=== PATIENT | male | born 1965 | race Caucasian/White ===

== ENCOUNTER 2017-11-28 12:15 | Emergency (ER) | payer MEDICARE, SELFPAY ==
[2017-11-28 12:16] VITALS: BP 132/84; PULSE 100; RESP 16; TEMP 36.7; O2SAT 98; BMI 41.9
--- NOTE | 2017-11-28 12:41 | ED.VISSUMM ---
- ER Visit Summary Date of Service: 11/28/17 Chief Complaint: Back pain History of Present Illness: The patient is a 52 M who presents with back pain that began 2 days ago after lifting his grandson. Patient states his grandson only weighs approximately 19 pounds. Patient states the pain is on the left lower lumbar area. Patient states he has a history of prior disc disease and prior discectomy. Patient states that usually his pain is on the right and he is concerned because the pain is on the left. Patient states that he stands up he gets numbness and tingling in his legs. Patient denies any radiation of the pain to his legs. Patient denies any bowel or bladder changes. Patient denies any saddle anesthesia. Physical Examination: Vital signs are stable. Patient is afebrile. Patient is in no acute distress. Musculoskeletal exam revealed tenderness and spasm of the lumbar paraspinal muscles on the left. There is no midline tenderness. There is no bony crepitance or step-off. Range of motion was limited in all motions of the lumbar spine secondary to pain. Strength is 5/5 bilaterally upper and lower extremities. There are no sensory deficits noted. Deep tendon reflexes are 2/4 bilaterally in the upper and lower extremities. The remaining physical exam is within normal limits. Test Results: X-rays of the lumbar spine were obtained. There were degenerative changes noted but no acute fracture. Emergency Department Course and Treatment: Patient was given injection of Toradol here. Patient was given prescriptions for Naprosyn and Flexeril. Patient was instructed use ice to the area. Patient was instructed to follow-up with his primary care physician in 5-7 days. Patient understood and was agreeable with the plan. All questions were answered. Disposition: Discharged home Impression: Acute lumbar strain This note was generated with [employer] dictation software. It may contain incorrect words, spelling, and punctuation that were not noted in review of the chart prior to signing ED Disposition - Plan for ED Patient: Disposition: Home or Assisted Living Chief Complaint: Back Diagnosis: Acute lumbar myofascial strain Instructions: ED Sprain Strain Lumbar Prescriptions: Naproxen [Naprosyn] 500 mg PO BID PRN #20 tab Cyclobenzaprine [Flexeril] 10 mg PO TID PRN #20 tab PRN Reason: Muscle Spasm Referrals: Lalo Weiner DO [Primary Care Provider] -
[2017-11-28] MEDS: Ketorolac 60 MG/2 ML Vial IM (12:58)
--- NOTE | 2017-11-28 13:25 | RAD_ITS ---
STUDY: X-RAY - LUMBAR SPINE REASON FOR EXAM: Male, 52 years old. Chronic lower back pain. TECHNIQUE: 3 view(s) of the lumbar spine were obtained. COMPARISON: None FINDINGS: Normal lumbar lordosis. There is no substantial scoliosis. There is a normal alignment of the vertebrae. Spondylosis at the L4-L5 and L5-S1 levels. Moderate degree of disc space narrowing at the L4-L5 level and moderate degree of disc space narrowing and degeneration at the L5-S1 level. Prior laminectomy at the L5-S1 level. The soft tissue structures are unremarkable. RAD/Lumbar Spine 2 or 3 Views IMPRESSION: Degenerative changes of the spine, as detailed above. Electronically Signed: Jorje Monroy MD at 14:05 EDT Tel [phone], Service support ,
[2017-11-28 15:08] VITALS: BP 148/94; PULSE 73; RESP 17
== END 2017-11-28 15:09 | disposition home or self-care (01) ==
PROVIDERS: Emergency Provider Emergency Medicine; Family Provider Student in an Organized Health Care Education/Training Program; PCP Student in an Organized Health Care Education/Training Program
DX: S39.012A Strain of muscle, fascia and tendon of lower back, initial encounter (principal); X50.9XXA Other and unspecified overexertion or strenuous movements or postures, initial encounter; Y93.9 Activity, unspecified; Y92.89 Other specified places as the place of occurrence of the external cause; Y99.9 Unspecified external cause status; E11.9 Type 2 diabetes mellitus without complications; F17.210 Nicotine dependence, cigarettes, uncomplicated
CPT/HCPCS: 72100; 96372; 99282

== ENCOUNTER 2018-04-26 10:46 | Emergency (ER) | payer MEDICARE, SELFPAY ==
[2018-04-26 10:47] VITALS: BP 134/77; PULSE 99; RESP 17; TEMP 36.6; O2SAT 95; BMI 44.8
--- NOTE | 2018-04-26 11:03 | ED.VISSUMM ---
- ER Visit Summary Date of Service: 04/26/18 Chief Complaint: Bilateral low back pain radiating anteriorly History of Present Illness: The patient is a 52 M who presents with bilateral low back pain that radiated anteriorly today. Pain started 4 days ago. Pain started after he moved furniture. He denies bowel bladder dysfunction. No saddle paresthesia anesthesia. He denies radicular pain. He denies foot drop. He denies quadricep weakness going up and down steps. He denies fever, chills or night sweats. Denies weight gain or weight loss. He denies dysuria, frequency, urgency or hematuria. He denies history of renal ureterolithiasis. There is no history of direct trauma. He denies cardiac respiratory symptoms. Past medical history of hypertension, diabetes and hypercholesterolemia. He was unaware that his creatinine is elevated 1.58. Physical Examination: Vital signs noted and blood pressure is slightly elevated 134/77. BMI is greater than 40 HEENT exam is unremarkable. Heart is regular without murmur, gallop or rub. S1 and S2 are normal. Lungs are clear to auscultation with good movement of air bilaterally. Abdomen is prominent with no tenderness. There is no abdominal bruit noted. Unable to assess for palpable pulsatile mass. There is no CVA tenderness. He has pain palpation right and left lower back. Straight leg test is negative. Patella and ankle reflex are 1+. EHL is intact. He has diminished to absent PT pulse bilaterally. Capillary refill is normal. Normal sensation. Test Results: None are indicated Emergency Department Course and Treatment: Patient was informed application of heat after injury makes pain worse. He took Percocet at home that he had from a another issue with some improvement. Since patient drove himself to the emergency department he was given a prescription for opiate analgesia. He was not given NSAIDs because of the elevated creatinine and fact that he has diabetes hypertension. Treatment Plan: Rest, ice opiate analgesia times 3 days Disposition: Discharged to home Impression: Bilateral low back pain without sciatica Renal insufficiency Diabetes by history History of hypertension History of hypercholesterolemia This note was generated with [employer] software. It may contain incorrect words, spelling, and punctuation that were not noted in review of the chart prior to signing ED Disposition - Plan for ED Patient: Disposition: Home or Assisted Living Chief Complaint: Flank Pain Instructions: ED Low Back Pain Injury Prescriptions: Oxycodone HCl/Acetaminophen [Percocet 5/325] 1 tab PO Q6H PRN PRN 3 Days #12 tab PRN Reason: Pain Referrals: Lalo Weiner DO [Primary Care Provider] - 1 Week if not improving
== END 2018-04-26 11:20 | disposition home or self-care (01) ==
LOC: ED 11:14
PROVIDERS: Emergency Provider Emergency Medicine; Family Provider Student in an Organized Health Care Education/Training Program; PCP Student in an Organized Health Care Education/Training Program
DX: M54.5 Low back pain (principal); R10.9 Unspecified abdominal pain; E11.9 Type 2 diabetes mellitus without complications; E78.00 Pure hypercholesterolemia, unspecified; Z72.0 Tobacco use; I12.0 Hypertensive chronic kidney disease with stage 5 chronic kidney disease or end stage renal disease; N18.6 End stage renal disease
CPT/HCPCS: 99282

== ENCOUNTER 2019-03-21 14:42 | Emergency (ER) | payer MEDICARE, SELFPAY ==
[2019-03-21 14:43] VITALS: BP 127/87; PULSE 118; RESP 20; TEMP 36.3; O2SAT 97; BMI 42.6
--- NOTE | 2019-03-21 14:53 | ED.RN ---
DR. LERMA MADE AWARE OF PT'S DIZZINESS FOR 2-4 DAYS AND VISION LOSS THAT STARTED AT 1000 TODAY. THIS RN ASKED IF STROKE ALERT SHOULD BE INITIATED AND DR. LERMA STATES I NEED TO SEE THE PT FIRST.
[2019-03-21 15:05] VITALS: BP 128/80; PULSE 103; RESP 15; O2SAT 98
[2019-03-21 15:06] LABS: Bedside Glucose 142 mg/dL (70-110)
--- NOTE | 2019-03-21 15:10 | CT_ITS ---
STUDY: CT BRAIN WITHOUT CONTRAST REASON FOR EXAM: Male, 53 years old. Vision changes involving the left eye today RADIATION DOSAGE (If Supplied By Facility): CTDIvol = ( 44.99 ) mGy, DLP = ( 829.85 ) mGycm TECHNIQUE: Transaxial CT imaging of the brain was performed without administration of intravenous contrast material. Individualized dose optimization techniques were used for this CT. COMPARISON: No relevant priors. FINDINGS: Normal soft tissue structures. Normal calvarium. Normal size ventricles and extra-axial spaces for the patient's age. Normal white matter tracts of the cerebral hemispheres. Normal basal ganglia and thalami. Normal brainstem. Normal cerebellum. There is no intracranial hemorrhage. There are no findings of an acute ischemic infarction. There is mucoperiosteal inflammatory disease of the maxillary sinuses consistent with mild chronic sinusitis. CT/Brain/Head without Contrast IMPRESSION: Normal unenhanced CT scan of the brain. Chronic maxillary sinusitis. Electronically Signed: Bob Green MD (Brooks) at 15:40 EST , Service support ,
--- NOTE | 2019-03-21 15:10 | EKG12_ITS ---
Test Reason : DIZZINESS Blood Pressure : / mmHG Vent. Rate : 105 BPM Atrial Rate : 105 BPM P-R Int : 150 ms QRS Dur : 078 ms QT Int : 338 ms P-R-T Axes : 039 078 028 degrees QTc Int : 446 ms Sinus tachycardia Low Voltage QRS (Limb Leads) Poor R-Wave Progression Confirmed by LEROY GASPAR, MAXIM ([id number]), editorial project manager WARD PILLAI ([id number]) on 03/24/2019 10:56:15 AM Referred By: POOJA Confirmed By:MAXIM HARPER MD
[2019-03-21 15:24] LABS: Absolute Lymphocyte Count 3.74 X10^3/uL (0.83-4.51); Basophil# 0.09 X10^3/uL; Basophil% 0.6 % (0-1); Eosinophil# 0.35 X10^3/uL; Eosinophils% 2.4 % (0-5); Hematocrit 47.1 % (40-54); Hemoglobin 15.7 g/dL (13.0-16.5); Lymphocyte # 3.74 X10^3/ul (4.0); Lymphocyte % 26.1 % (19-41); Mean Corp Hgb Conc 33.3 g/dL (32-36); Mean Corpuscular Hgb 28.8 pg (27.0-32.0); Mean Corpuscular Volume 86.4 fL (80-94); Mean Platelet Vol. 9.8 fl (6.2-12.0); Monocyte# 1.05 X10^3/uL; Monocyte% 7.3 % (0-10); NRBC Flagged by Analyzer 0 % (0-5); Platelet Count 347 K/mm3 (150-450); RBC Distribution Width CV 13.3 % (11.6-14.6); RBC Distribution Width SD 41.6 fl (35.1-43.9); Red Blood Count 5.45 M/mm3 (4.6-6.2); White Blood Count 14.3 K/mm3 (4.4-11.0)
--- NOTE | 2019-03-21 15:29 | ED.VIS.GEN ---
History of Present Illness Chief Complaint: Dizziness Detail of Chief Complaint: Dizziness, headache, vision loss left eye Informant: Patient Onset: Days Narrative: Patient presents with mild headache and a lightheaded sensation for the past 1 week. He states overall he feels very weak but does not have any focal deficits. He reportedly woke up this morning with normal vision. At 10 AM he noted a black field covering the medial third of his left eye. He had no eye pain. At 130 this afternoon he noted that the dark coverage now covered three quarters of his vision. He is only able to see out of the upper outer quarter of his eye or so. Past Medical History - Allergies and Home Meds Allergies/Adverse Reactions: Allergies hydrocodone bitartrate [From Vicodin] Adverse Reaction (Verified 03/21/19 14:47) Nausea Primary Care Physician: Lalo Weiner DO [Primary Care Provider] - Prior records reviewed: Yes Past Medical History: - - Reviewed Surgical History: - - right calcaneal fracture repair, discectomy lumbar. Smoking Status: Current every day smoker - Family History Maternal Family History: Reports: Hypertension, Stroke Paternal Family History: Reports: Heart Disease, Hypertension Review of Systems General: Denies: Chills, Fever Eyes: Reports: Visual changes - left ENT: Denies: Bilateral ear pain Cardiovascular: Denies: Chest pain, Palpitations Respiratory: Reports: Dyspnea - With exertion. Denies: Cough, Sputum Gastrointestinal: Denies: Abdominal pain, Nausea, Vomiting, Diarrhea Genitourinary: Denies: Dysuria Musculoskeletal: Denies: Swelling, Extremity Pain Skin: Denies: Rash, Wounds Neurological: Reports: Headache, Weakness - Generalized weakness Hematologic: Denies: Easy bruising Allergy: Denies: Uticaria Physical Exam Vital Signs/Narrative: Vital Signs Temp Pulse Resp BP Pulse Ox 03/21/19 15:05 103 H 15 128/80 H 98 03/21/19 14:43 97.4 F L 118 H 20 H 127/87 H 97 Inital Vital Signs reviewed: Yes General: Well nourished, Well developed Head: Normocephalic Eyes: - - Right pupil 3 mm to 1 mm. Left pupil 3mm to 2 mm. Red reflex is noted on the back of the left eye but I am unable to make out any further detail. Extraocular movements are fully intact. There is no conjunctival injection. ENT: Moist mucous membranes Neck: Supple Cardiovascular: Tachycardia - Mild tachycardia. Respiratory: No distress, CTA bilaterally Abdomen: Soft, Nontender, Normal bowel sounds Extremities: Nontender Skin: Normal color, No rash Neurological: Alert, Oriented x3, Normal Strength, Normal Sensation Psychological: Normal affect Diagnostic/Tx/Re-eval Impressions Brain CT 03/21/19 15:10 IMPRESSION: Normal unenhanced CT scan of the brain. Chronic maxillary sinusitis. Electronically Signed: Bob Green MD (Brooks) at 15:40 EST , Service support , Chest X-Ray 03/21/19 15:30 IMPRESSION: Stable, nonacute portable x-ray examination of the chest. Electronically Signed: Bob Green MD (Brooks) at 15:58 EST , Service support , 03/21/19 15:10 Brain/Head without Contrast [CT] Stat 03/21/19 15:30 Chest 1 View (Portable) [RAD] Stat Laboratory Results 03/21/19 03/21/19 03/21/19 14:50 14:50 14:50 WBC 14.3 H RBC 5.45 Hgb 15.7 Hct 47.1 MCV 86.4 MCH 28.8 MCHC 33.3 RDW Std Deviation 41.6 RDW Coeff of Ivory 13.3 Plt Count 347 MPV 9.8 Immature Gran % (Auto) 0.600 Neut % (Auto) 63.0 Lymph % (Auto) 26.1 [place] % (Auto) 7.3 Eos % (Auto) 2.4 Baso % (Auto) 0.6 Absolute Neuts (auto) 9.0 H Absolute Lymphs (auto) 3.74 Nucleated RBC % 0 PT 14.3 INR 1.1 APTT 39.4 H Sodium 136 Potassium 4.2 Chloride 104 Carbon Dioxide 23.0 Anion Gap 9 BUN 25 H Creatinine 1.21 Estim Creat Clear Calc 77.96 Est GFR (MDRD) Af Amer 80 Est GFR (MDRD) Non-Af 66 BUN/Creatinine Ratio 20.7 H Glucose 137 H Calcium 9.3 Total Bilirubin 0.60 Direct Bilirubin 0.17 AST 24 ALT 57 Alkaline Phosphatase 118 H Troponin I < 0.015 Total Protein 7.9 Albumin 3.4 Globulin 4.5 H POC Glucose 03/21/19 15:00 WBC RBC Hgb Hct MCV MCH MCHC RDW Std Deviation RDW Coeff of Ivory Plt Count MPV Immature Gran % (Auto) Neut % (Auto) Lymph % (Auto) [place] % (Auto) Eos % (Auto) Baso % (Auto) Absolute Neuts (auto) Absolute Lymphs (auto) Nucleated RBC % PT INR APTT Sodium Potassium Chloride Carbon Dioxide Anion Gap BUN Creatinine Estim Creat Clear Calc Est GFR (MDRD) Af Amer Est GFR (MDRD) Non-Af BUN/Creatinine Ratio Glucose Calcium Total Bilirubin Direct Bilirubin AST ALT Alkaline Phosphatase Troponin I Total Protein Albumin Globulin POC Glucose 142 H - EKG Initial EKG Interpretation: Sinus Tachycardia - Sinus tach at 105. No acute ischemia. - Medical Decision Making I spoke with Dr. Roper immediately after I saw the patient. He states it sounds like the patient may have a vitreous hemorrhage and that he had gradual change in his vision. I went back and explained this to the patient. He wanted me to be sure that I understood that at 10 AM he had sudden loss of vision from the medial third of his eye which remained stable, then suddenly worsened at 1:30. He tells me that he has been treated for glaucoma and has been told in the past that he had a retinal tear and should watch for retinal detachment. Following completion of lab work and CT, I spoke with Dr. Roper again. I relayed this information. He advises that typically retinal detachment will have vision loss over period of 3 to 5 days. If the patient's vision was normal this morning and now is very poor it is unlikely to be a retinal detachment. He thinks the patient may have developed another retinal tear and potentially some hemorrhage from that. This was explained to the patient in detail. Patient voices understanding and agreement. We advised the patient that we would like him to be seen by ophthalmology tomorrow. 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 Roper states that he is happy to see the patient tomorrow if he is unable to see his physician. On repeat evaluation heart rate is in the 90s. Patient is resting comfortably. ED Disposition - Plan for ED Patient: Disposition: Home or Assisted Living Diagnosis: Change in vision Instructions: Blurred Vision Referrals: Eliazar Roper MD [STAFF PHYSICIAN] - 1 Day Additional Instructions: As discussed, you need to be seen by ophthalmology tomorrow. If you are unable to see your doctor, call Dr Roper' office to be seen tomorrow.
--- NOTE | 2019-03-21 15:30 | RAD_ITS ---
STUDY: X-RAY CHEST REASON FOR EXAM: Male, 53 years old. Shortness of breath TECHNIQUE: AP COMPARISON: 10/19/2016 FINDINGS: EKG leads project over the chest. The lungs are clear and expanded. There is no demonstrated pleural abnormality. Normal size heart. Normal mediastinum and jojo. Normal visualized pulmonary arteries. Normal visualized aortic arch and descending thoracic aorta. Normal visualized thoracic spine. Normal visualized ribs, clavicles, and shoulders. There is no demonstrated abnormality of the visualized soft tissue structures of the upper abdomen. RAD/Chest 1 View (Portable) IMPRESSION: Stable, nonacute portable x-ray examination of the chest. Electronically Signed: Bob Green MD (Brooks) at 15:58 EST , Service support ,
[2019-03-21 15:35] LABS: International Normalized Ratio 1.1; Prothrombin Time (Protime)PT. 14.3 SECONDS (11.7-14.9)
[2019-03-21 15:36] LABS: Partial Thromboplast Time 39.4 Seconds (24.1-36.2)
[2019-03-21 15:39] LABS: AST(SGOT) 24 U/L (15-37); Alanine Aminotransfer ALT/SGPT 57 U/L (16-61); Albumin, Serum 3.4 g/dL (3.2-5.0); Alkaline Phosphatase 118 U/L (45-117); Anion Gap 9 (5-15); BUN 25 mg/dL (7-18); BUN/Creat Ratio 20.7 RATIO (10-20); Bilirubin, Direct 0.17 mg/dL (0.00-0.30); Calcium,Total 9.3 mg/dL (8.5-10.1); Chloride 104 mmol/L (98-107); Creatinine, Serum 1.21 mg/dL (0.70-1.30); EST Glomerular Filtration Rate 66 mL/min (>60); Est Glom Filt Rate - Afr Amer 80 mL/min (>60); Estimated Creatinine Clearance 77.96 ml/min; Globulin 4.5 g/dL (2.2-4.2); Glucose 137 mg/dL (74-106); Potassium 4.2 mmol/L (3.5-5.1); Protein, Total 7.9 g/dL (6.4-8.2); Sodium Level 136 mmol/L (136-145)
[2019-03-21] MEDS: 0.9% Normal Saline 1,000 ML 150 ML IV (15:44)
[2019-03-21 16:12] VITALS: BP 129/81; PULSE 85; RESP 19; O2SAT 95
--- NOTE | 2019-03-21 16:14 | ED.RN ---
REVIEWED D/C INSTRUCTIONS, FOLLOW UP CARE, AND S/S THAT WOULD WARRANT A RETURN TO THE ED WITH PT. PT VERBALIZED AN UNDERSTANDING AND DENIES FURTHER QUESTIONS FOR THIS RN. PT SKIN P/W/D, RESP EVEN AND UNLABORED, PT A&O X 3, NO DISTRESS NOTED. PT AMBULATED OUT OF ED, GAIT STEADY.
== END 2019-03-21 16:15 | disposition home or self-care (01) ==
PROVIDERS: Emergency Provider Emergency Medicine; Family Provider Student in an Organized Health Care Education/Training Program; PCP Student in an Organized Health Care Education/Training Program
DX: H53.8 Other visual disturbances (principal); J32.0 Chronic maxillary sinusitis; F17.200 Nicotine dependence, unspecified, uncomplicated; Z82.49 Family history of ischemic heart disease and other diseases of the circulatory system; Z88.5 Allergy status to narcotic agent; R06.02 Shortness of breath
CPT/HCPCS: 70450; 71045; 80048; 80076; 82962; 84484; 85025; 85610; 85730; 93005; 96360; 99284; J7030; A4216

== ENCOUNTER 2019-05-29 14:00 | Emergency (ER) | payer MEDICARE, SELFPAY ==
[2019-05-29 14:00] VITALS: BP 154/106; PULSE 114; RESP 18; TEMP 36.9; O2SAT 99; BMI 44.5
--- NOTE | 2019-05-29 14:13 | CT_ITS ---
STUDY: CT ABDOMEN AND PELVIS WITHOUT CONTRAST REASON FOR EXAM: Male, 53 years old. RLQ PAIN, HX HERNIA REPAIR RADIATION DOSAGE (If Supplied By Facility): CTDIvol = ( 23.71 ) mGy, DLP = ( 1327.21 ) mGycm TECHNIQUE: Transaxial images were obtained from the dome of the diaphragm to the symphysis pubis without oral contrast, and without intravenous contrast. Sagittal and coronal images were reconstructed. Individualized dose optimization techniques were used for this CT. COMPARISON: CT abdomen and pelvis with oral and IV contrast May 02, 2017 FINDINGS: The visualized lung bases are unremarkable. The visualized portions of the heart are within normal limits. Normal liver. The portal vein diameter is 20.5 mm. Normal gallbladder and extrahepatic biliary system. Normal spleen. Normal pancreas. Normal bilateral adrenal glands. Normal right kidney. Normal left kidney. No hydronephrosis. Normal visualized stomach. Normal small intestine. Normal colon. The appendix is visualized and appears normal. There is mild to moderate atherosclerotic calcification of the distal abdominal aorta and proximal iliac arteries, without a demonstrated aneurysm. Normal inferior vena cava. There is a stable crescent shaped 2.1 x 3.75 x 1.45 cm lymph node interposed between the inferior vena cava and neck of the pancreas. A few upper normal-sized to borderline enlarged left periaortic ridge. No lymph nodes are unchanged. No new adenopathy. Normal urinary bladder. Normal visualized prostate gland. Normal abdominal wall. There are stable multilevel degenerative changes of the visualized thoracolumbar spine. CT/Abdomen/Pelvis without Cont IMPRESSION: 1. No recurrent abdominal wall hernia. 2. No new demonstrated abdominal/pelvic mass or fluid collection. 3. Mild to moderate aortoiliac atherosclerotic calcification plaque in again noted. No demonstrated aneurysm. Electronically Signed: Nestor Moreno MD at 15:21 EST , Service support ,
--- NOTE | 2019-05-29 14:15 | ED.VISSUMM ---
- ER Visit Summary Date of Service: 05/29/19 Chief Complaint: Abdominal pain History of Present Illness: The patient is a 53 M who presents with abdominal pain. Started this morning when he woke up. Sharp in the right lower quadrant. It does not radiate. He states nothing makes the pain better but driving made the pain worse. No nausea, vomiting or diarrhea. He denies any constipation. No dysuria or hematuria. He has had a previous hernia repair in the past. No fevers. No other abdominal surgeries. He took nothing for this at home. Physical Examination: Vital signs reviewed. HEENT exam unremarkable. Heart is regular rate and rhythm without murmurs. Lungs are clear to auscultation. Abdomen is soft with tenderness in the right lower quadrant. There is no guarding or rebound tenderness. Extremities reveal no edema. Skin exam normal. Neurologic exam normal. Test Results: Laboratory studies unremarkable except for a white blood cell count of 12.4 and glucose of 209. Urinalysis negative for infection or blood. CAT scan of the abdomen and pelvis reveals nothing acute. The appendix is seen and normal Emergency Department Course and Treatment: Patient given morphine and Zofran. He continued to have pain so he was given 1 dose of Dilaudid. He states that his pain is improving. I do not see any acute causes for the patient's pain. No signs of appendicitis. I am unclear the etiology of this patient's pain. However since his pain is improved I will discharge him to home with Bentyl and Phenergan for pain. He will follow-up with his doctor Treatment Plan: [] Disposition: Discharge Impression: Right-sided abdominal pain This note was generated with [employer] dictation software. It may contain incorrect words, spelling, and punctuation that were not noted in review of the chart prior to signing ED Disposition - Plan for ED Patient: Disposition: Home or Assisted Living Instructions: ABDOMINAL PAIN, Unkown Cause, (Male) Prescriptions: Dicyclomine HCl [Bentyl] 20 mg PO TIDAC #20 cap Transmission Status: Pending to [id number] proMETHazine tablet [Phenergan] 25 mg PO Q6H PRN PRN #10 tab PRN Reason: Nausea Transmission Status: Pending to [id number] Referrals: Lalo Weiner DO [Primary Care Provider] - Additional Instructions: Your prescriptions were electronically transmitted to the [facility]
[2019-05-29 14:18] VITALS: PULSE 114; TEMP 36.9
[2019-05-29] MEDS: Morphine 4 MG/ML Syringe IV (14:27)
[2019-05-29] MEDS: Ondansetron 4 MG/2 ML Vial IV (14:28)
[2019-05-29 14:31] LABS: Absolute Lymphocyte Count 2.89 X10^3/uL (0.83-4.51); Absolute Neutrophil Count 7.9 X10^3/uL (2.0-7.7); Basophil# 0.08 X10^3/uL; Basophil% 0.6 % (0-1); Eosinophil# 0.44 X10^3/uL; Eosinophils% 3.5 % (0-5); Hemoglobin 14.8 g/dL (13.0-16.5); Lymphocyte # 2.89 X10^3/ul (4.0); Lymphocyte % 23.3 % (19-41); Mean Corp Hgb Conc 32.2 g/dL (32-36); Mean Corpuscular Hgb 28.5 pg (27.0-32.0); Mean Corpuscular Volume 88.5 fL (80-94); Mean Platelet Vol. 9.9 fl (6.2-12.0); Monocyte# 1.07 X10^3/uL; Monocyte% 8.6 % (0-10); NRBC Flagged by Analyzer 0 % (0-5); Neutrophil # 7.89 X10^3/uL (2.7-7.7); Neutrophil % 63.5 % (47-70); Platelet Count 271 K/mm3 (150-450); RBC Distribution Width CV 14.3 % (11.6-14.6); RBC Distribution Width SD 46.5 fl (35.1-43.9); White Blood Count 12.4 K/mm3 (4.4-11.0)
[2019-05-29 14:42] LABS: ALB/GLOB Ratio 0.8 RATIO (0.9-2.4); AST(SGOT) 23 U/L (15-37); Alanine Aminotransfer ALT/SGPT 58 U/L (16-61); Albumin, Serum 3.3 g/dL (3.2-5.0); Alkaline Phosphatase 110 U/L (45-117); Anion Gap 6 (5-15); BUN 15 mg/dL (7-18); Calcium,Total 9.1 mg/dL (8.5-10.1); Chloride 103 mmol/L (98-107); Creatinine, Serum 1.25 mg/dL (0.70-1.30); EST Glomerular Filtration Rate 64 mL/min (>60); Est Glom Filt Rate - Afr Amer 77 mL/min (>60); Estimated Creatinine Clearance 73.29 ml/min; Globulin 4.2 g/dL (2.2-4.2); Glucose 209 mg/dL (74-106); Potassium 3.8 mmol/L (3.5-5.1); Protein, Total 7.5 g/dL (6.4-8.2); Sodium Level 137 mmol/L (136-145)
[2019-05-29] MEDS: HYDROmorphone 1 MG/ML Syringe IV (15:13)
[2019-05-29 15:47] LABS: Mucous, Urine 0 SEEN /hpf (<or=2+); Squamous Epithelial Cells - UA 0 SEEN /hpf (0-5); White Blood Cells 0 SEEN /hpf (0-5)
[2019-05-29 15:51] LABS: Color, Urine Yellow (Yellow); Glucose, Dipstick 50 mg/dl (Normal); Ketone-Dipstick Negative (Negative); Leukocyte Esterase-Dipstick Negative /ul (Negative); Nitrite-Dipstick Negative (Negative); Occult Blood-Urine Negative /ul (Negative); Protein-Dipstick 30 mg/dl (Negative); Specific Gravity, Urine 1.015 (1.002-1.030); Urine Bilirubin Dipstick Negative (Negative); Urine Clarity Sl. Cloudy (Clear); Urine Urobilinogen Normal (Normal)
[2019-05-29 16:00] LABS: Bacteria RARE /hpf (None Seen); Red Blood Cells-Urine 0-5 SEEN /hpf (0-5)
[2019-05-29 16:38] VITALS: BP 137/89; PULSE 81; RESP 18; O2SAT 96
== END 2019-05-29 16:40 | disposition home or self-care (01) ==
PROVIDERS: Emergency Provider Emergency Medicine; Family Provider Student in an Organized Health Care Education/Training Program; PCP Student in an Organized Health Care Education/Training Program
DX: R10.9 Unspecified abdominal pain (principal); E11.9 Type 2 diabetes mellitus without complications; I10 Essential (primary) hypertension; Z72.0 Tobacco use
CPT/HCPCS: 74176; 80053; 81001; 85025; 96374; 96375; 99283; A4216; J2405

== ENCOUNTER 2019-08-05 10:35 | Observation (INO) | payer MEDICARE, SELFPAY ==
[2019-08-05] VITALS (12 sets, daily range): BP systolic 110–140; BP diastolic 55–84; PULSE 69–97; RESP 15–20; TEMP 36.1–36.7; O2SAT 96–100; BMI 40.7; BMI 43.0; BMI 43.1
--- NOTE | 2019-08-05 10:55 | EKG12_ITS ---
Test Reason : Blood Pressure : / mmHG Vent. Rate : 080 BPM Atrial Rate : 082 BPM P-R Int : 152 ms QRS Dur : 084 ms QT Int : 366 ms P-R-T Axes : 050 066 046 degrees QTc Int : 422 ms Normal sinus rhythm Normal ECG Confirmed by JANAY GUILLEN ([id number]), digital editor SANDI JEROME ([id number]) on 08/09/2019 11:04:01 AM Referred By: DEENA Confirmed By:JANAY GUILLEN
--- NOTE | 2019-08-05 11:10 | RAD_ITS ---
STUDY: X-RAY CHEST REASON FOR EXAM: Male, 53 years old. SOB, COUGHING, BURNING PAIN IN CHEST TECHNIQUE: PA and lateral views of the chest. COMPARISON: Comparison is made with prior study of March 21, 2019. FINDINGS: EKG electrodes are seen. Stable linear increased markings in the right minor fissure. This most likely represents focal scar. No acute abnormality is seen. There is no demonstrated pleural abnormality. Normal size heart. Normal mediastinum and jojo. Normal visualized pulmonary arteries. Normal visualized aortic arch and descending thoracic aorta. Normal visualized thoracic spine. Normal visualized ribs, clavicles, and shoulders. There is no demonstrated abnormality of the visualized soft tissue structures of the upper abdomen. RAD/Chest PA and Lateral IMPRESSION: No acute abnormality is seen. Electronically Signed: Jorje Monroy, at 11:44 EDT , Service support ,
--- NOTE | 2019-08-05 11:12 | ED.VISSUMM ---
- ER Visit Summary Date of Service: 08/05/19 Chief Complaint: Chest pain History of Present Illness: The patient is a 53 M 3 of diabetes hypertension, high cholesterol, COPD. Fatty liver. Patient states that she has had for the last 5 days or so he is had exertional shortness of breath and chest pain across his chest he states is a burning. He had a mild cough nonproductive. No fever. No nausea vomiting diarrhea. No melena. He is never had cardiac disease. He is a smoker. His dad had an NE around age 60. He denies any history of DVT or PE. No clotting disorder. No recent travel, surgery, immobilization. No hemoptysis. No pleuritic chest pain. No calf pain or swelling. Physical Examination: Middle-aged male vital signs stable afebrile. Pulse ox 96% on room air no signs of hypoxia. HEENT exam unremarkable. Neck nontender no JVD. No lymphadenopathy. Lungs clear to auscultation bilaterally. Heart regular rhythm no murmur. Abdomen soft nontender normal bowel sounds no peritoneal signs. Extremities moves all 4. Calves nontender without edema or cords. Neurologically awake alert with no focal motor deficits. Test Results: EKG shows a normal sinus rhythm rate of 80 with no signs of NE or ischemia no significant change from a prior EKG from March 2019. This x-ray shows no acute abnormality. Normal cardiac silhouette mediastinum. Read both by myself and radiologist. CBC normal white count of 10. Hemoglobin 15. Electrolytes unremarkable normal creatinine normal gap. Glucose 259. Troponin normal. Repeat exam at 11:59 AM patient says he is having more upper chest pain. I repeat EKG will be obtained to be given sublingual nitro. He is already received aspirin. Emergency Department Course and Treatment: Patient's history is concerning for exertional dyspnea and chest pain. Will be worked up as a cardiac etiology. He has no risk factors for a PE.. Infectious etiology is a possibility but less likely. Treatment Plan: Patient will be admitted for chest pain of uncertain etiology. I am concerned this could be cardiac disease. His age, history of diabetes, history of hypertension, smoker and family history. I have the hospitalist on page for admission. Also the patient's chest pain was completely resolved with sublingual nitroglycerin. Disposition: Admission Impression: Acute exertional dyspnea and chest pain This note was generated with [employer] dictation software. It may contain incorrect words, spelling, and punctuation that were not noted in review of the chart prior to signing ED Disposition - Plan for ED Patient: Referrals: Lalo Weiner DO [Primary Care Provider] -
[2019-08-05 11:14] LABS: Absolute Lymphocyte Count 2.39 X10^3/uL (0.83-4.51); Absolute Neutrophil Count 6.3 X10^3/uL (2.0-7.7); Basophil# 0.07 X10^3/uL; Basophil% 0.7 % (0-1); Eosinophil# 0.38 X10^3/uL; Eosinophils% 3.8 % (0-5); Hematocrit 44.8 % (40-54); Lymphocyte # 2.39 X10^3/ul (4.0); Lymphocyte % 23.9 % (19-41); Mean Corp Hgb Conc 33.5 g/dL (32-36); Mean Corpuscular Hgb 28.7 pg (27.0-32.0); Mean Corpuscular Volume 85.8 fL (80-94); Mean Platelet Vol. 9.7 fl (6.2-12.0); Monocyte# 0.81 X10^3/uL; Monocyte% 8.1 % (0-10); NRBC Flagged by Analyzer 0 % (0-5); Neutrophil # 6.32 X10^3/uL (2.7-7.7); Neutrophil % 63.2 % (47-70); Platelet Count 218 K/mm3 (150-450); RBC Distribution Width CV 13.3 % (11.6-14.6); RBC Distribution Width SD 41.4 fl (35.1-43.9); Red Blood Count 5.22 M/mm3 (4.6-6.2)
[2019-08-05 11:31] LABS: Anion Gap 7 (5-15); BUN 20 mg/dL (7-18); BUN/Creat Ratio 16.4 RATIO (10-20); Calcium,Total 9.1 mg/dL (8.5-10.1); Chloride 102 mmol/L (98-107); Creatinine, Serum 1.22 mg/dL (0.70-1.30); EST Glomerular Filtration Rate 65 mL/min (>60); Est Glom Filt Rate - Afr Amer 79 mL/min (>60); Estimated Creatinine Clearance 77.32 ml/min; Glucose 259 mg/dL (74-106); Potassium 4.2 mmol/L (3.5-5.1); Sodium Level 135 mmol/L (136-145)
[2019-08-05] MEDS: Aspirin 325 MG Tablet PO (11:52)
--- NOTE | 2019-08-05 12:02 | EKG12_ITS ---
Test Reason : CP Blood Pressure : / mmHG Vent. Rate : 071 BPM Atrial Rate : 071 BPM P-R Int : 154 ms QRS Dur : 088 ms QT Int : 380 ms P-R-T Axes : 048 063 038 degrees QTc Int : 412 ms Normal sinus rhythm Low voltage QRS Borderline ECG When compared with ECG of 05-AUG-2019 12:04, MANUAL COMPARISON REQUIRED, DATA IS UNCONFIRMED Confirmed by JANAY GUILLEN ([id number]), legal editor SANDI JEROME ([id number]) on 08/09/2019 11:40:20 AM Referred By: Confirmed By:JANAY GUILLEN
[2019-08-05] MEDS: Nitroglycerin SL (ED/IMG/CATH) 0.4 MG TABLET SUBLINGUAL ×2 (12:05→12:19)
--- NOTE | 2019-08-05 13:07 | EKG12_ITS ---
Test Reason : CP Blood Pressure : / mmHG Vent. Rate : 082 BPM Atrial Rate : 082 BPM P-R Int : 148 ms QRS Dur : 084 ms QT Int : 354 ms P-R-T Axes : 055 066 042 degrees QTc Int : 413 ms Normal sinus rhythm Normal ECG When compared with ECG of 05-AUG-2019 13:13, MANUAL COMPARISON REQUIRED, DATA IS UNCONFIRMED Confirmed by JANAY GUILLEN ([id number]), assistant production editor SANDI JEROME ([id number]) on 08/09/2019 11:40:34 AM Referred By: Confirmed By:JANAY GUILLEN
--- NOTE | 2019-08-05 13:41 | PCM.HP.STD ---
Problem List (1) Diabetes mellitus, type II Status: Chronic Qualifiers: Diabetes mellitus complication status: with other specified complication (2) Chronic back pain Status: Chronic Qualifiers: Back pain location: back pain in unspecified location (3) Tobacco use Status: Chronic (4) COPD (chronic obstructive pulmonary disease) Status: Chronic Qualifiers: COPD type: unspecified COPD Qualified Code(s): J44.9 - Chronic obstructive pulmonary disease, unspecified (5) Hyperlipidemia Status: Chronic Qualifiers: Hyperlipidemia type: unspecified hyperlipidemia Qualified Code(s): E78.5 - Hyperlipidemia, unspecified (6) Hypertension Status: Chronic Qualifiers: Hypertension type: essential hypertension Qualified Code(s): I10 - Essential (primary) hypertension (7) Morbid obesity Status: Chronic History of Present Illness Date of Admission: 08/05/19 Chief Complaint: Chest pain - ongoing for 6 days The patient is a 53 year old M with past medical history of hypertension, hyperlipidemia, type II DM, morbid obesity who comes in with complaints of chest pain that started 6 days ago. Patient had severe substernal chest discomfort that radiates across the chest, worse sometimes with ambulation, sometimes with deep breath. This is associated with dizziness, but no palpitations. He denies orthopnea or PND. He denied any upper respiratory symptoms, no fevers, no chills. There is a positive family history of IA in his father in his 50s. Patient is a smoker but stopped 3 days prior. Vitals in the ED showed temperature of 90 7F, heart rate 97, blood pressure 110/79, respiratory rate 16, SPO2 96% on room air. CBC D is unremarkable, BMP unremarkable except for elevated blood glucose. Chest x-ray shows no acute abnormality. Past Medical History Past Medical History (Chronic Problems): Chronic Problems Diverticulitis (Chronic) Noted 2 prior episodes of diverticulitis. Diabetes mellitus, type II (Chronic) Mild cognitive impairment (Chronic) Chronic back pain (Chronic) Tobacco use (Chronic) COPD (chronic obstructive pulmonary disease) (Chronic) Hyperlipidemia (Chronic) Hypertension (Chronic) Morbid obesity (Chronic) Allergies hydrocodone bitartrate [From Vicodin] Adverse Reaction (Verified 08/05/19 10:36) Nausea Home Medications: Ambulatory Orders Medication Instructions Recorded metFORMIN HCl [Glucophage] 750 mg PO BID 12/17/14 Atorvastatin Calcium [Lipitor] 40 mg PO QHS 04/26/18 Lisinopril/Hydrochlorothiazide 2 tablet PO DAILY 04/26/18 [Zestoretic 20/12.5 Tablet] proMETHazine tablet [Phenergan] 25 mg PO Q6H PRN PRN #10 tab 05/29/19 Surgical History: - - right calcaneal fracture repair, discectomy lumbar, left retinal surgery Psychiatric History: No pertinent psych hx Lives: Spouse/ Significant Other Smoking Status: Former smoker - quit 3 days ago Tobacco Use: Cigarettes Alcohol: None Drugs: None - *Family History Maternal History Items: Hypertension, Stroke Paternal History Items: Heart Disease, Hypertension Review of Systems Constitutional: Denies: Anorexia, Chills, Fever, Malaise, Weakness, Weight Change Eyes: Denies: Blurred vision, Cataracts, Conjunctivae Inflammation, Pain, Redness, Vision Change HEENT: Denies: Difficulty Hearing, Difficulty Swallowing, Head Aches, Hearing Changes, Sinus Congestion, Sinus Drainage Cardiovascular: Reports: Chest Pain, Light Headedness. Denies: Claudication, Orthopnea, Palpitations Respiratory: Denies: Cough, Hemoptysis, Shortness of breath at rest, Shortness of breath upon exertion, Sputum production Gastrointestinal: Denies: Abdominal Pain, Constipation, Hematemesis, Hematochezia, Nausea, Vomiting Genitourinary: Denies: Dysuria, Incontinence, Nocturia Musculoskeletal: Denies: Joint Pain, Joint stiffness, Joint swelling, Joint Tenderness Skin: Denies: Rash, Wounds Neurological: Denies: Numbness, Tingling, Focal weakness Psychiatric: Denies: Anxiety, Depression, Homicidal Ideations, Suicidal Ideations Hematologic/ Lymphatic: Denies: Easy Bruising, Easy Bleeding VTE Information - Inpt Only VTE Present on Admission: No VTE Pharm Prophylaxis ordered?: Yes - Physical Exam Vitals/I&O's: Vital Signs Temp Pulse Resp BP Pulse Ox 97.8 F 82 20 H 123/78 H 97 08/05/19 13:01 08/05/19 13:01 08/05/19 13:01 08/05/19 13:01 08/05/19 13:01 Oxygen Delivery Method Room Air Weight: 148.1 kg Body Mass Index (BMI) 43.0 General: Alert, Oriented x3, Cooperative, No apparent distress HEENT: Atraumatic, PERRLA, EOMI, Normocephalic Oral: Moist Mucosa Neck: Supple Lungs: Clear to auscultation, Normal air movement Cardiovascular: Regular rate, Regular Rhythm, Normal S1, Normal S2, No murmurs Abdomen: Bowel Sounds Present, Soft, Non Tender, Non-Distended, No Hepato-splenomegaly Extremities: No edema, Capillary Refill Less than 3 Seconds Skin: No rashes, No breakdown Musculoskeletal: No Tenderness to Palpation of Joints or Extremities Neurological: Cranial nerves II-XII grossly intact Psych/Mental Status: Normal Affect, Appropriate Laboratory Results 08/05/19 11:01: WBC 10.0, RBC 5.22, Hgb 15.0, Hct 44.8, MCV 85.8, MCH 28.7, MCHC 33.5, RDW Std Deviation 41.4, RDW Coeff of Ivory 13.3, Plt Count 218, MPV 9.7, Immature Gran % (Auto) 0.300, Neut % (Auto) 63.2, Lymph % (Auto) 23.9, [place] % (Auto) 8.1, Eos % (Auto) 3.8, Baso % (Auto) 0.7, Absolute Neuts (auto) 6.3, Absolute Lymphs (auto) 2.39, Nucleated RBC % 0 08/05/19 11:01: Sodium 135 L, Potassium 4.2, Chloride 102, Carbon Dioxide 26.0, Anion Gap 7, BUN 20 H, Creatinine 1.22, Estim Creat Clear Calc 77.32, Est GFR (MDRD) Af Amer 79, Est GFR (MDRD) Non-Af 65, BUN/Creatinine Ratio 16.4, Glucose 259 H, Calcium 9.1, Troponin I < 0.015 Current Medications Sodium Chloride () 250 mls @ 15 mls/hr IV .[id number] PRN PRN Reason: Saline Flush Sodium Chloride () 250 mls @ 15 mls/hr IV .[id number] PRN PRN Reason: Additional IVPB Infusion Sodium Chloride () 10 - 40 ml IV UD PRN PRN Reason: SALINE FLUSH Assessment/Plan All Active Problems Pancolitis (Acute) 53 year old M with past medical history of hypertension, hyperlipidemia, type II DM, morbid obesity who comes in with complaints of chest pain that started 6 days ago. 1. Chest pain, atypical, in a patient with multiple risk factors, admitting EKG shows no acute ST change, troponins are negative Will trend troponins, monitor on telemetry, nuclear stress test in a.m. 2. Hypertension, trolled, continue lisinopril/hydrochlorothiazide 3. Type 2 DM, blood sugars are controlled, hold metformin, Continue with insulin sliding scale 4. Hyperlipidemia, on statin 5. Nicotine dependence, advised to continue to quit (patient has quit in the last 3 days) Refused nicotine replacement. 6. Morbid obesity, BMI 43.1, lifestyle modifications recommended 7. DVT PPx- Heparin SC OBSV E&M: [id number] Initial observation care L3
[2019-08-05 15:26] LABS: AST(SGOT) 29 U/L (15-37); Alanine Aminotransfer ALT/SGPT 70 U/L (16-61); Albumin, Serum 3.3 g/dL (3.2-5.0); Alkaline Phosphatase 109 U/L (45-117); Bilirubin, Direct 0.12 mg/dL (0.00-0.30); Globulin 3.9 g/dL (2.2-4.2); Protein, Total 7.2 g/dL (6.4-8.2)
[2019-08-05] MEDS: Heparin Injection (Vial) 5,000 UNIT/ML VIAL 5000 UNIT SC ×2 (15:56→21:59)
[2019-08-05] MEDS: Insulin Lispro 100 UNIT/ML INSULN.PEN SC ×2 (17:05→21:59)
[2019-08-05 17:16] LABS: Bedside Glucose 204 mg/dL (70-110)
--- NOTE | 2019-08-05 18:30 | EKG12_ITS ---
Test Reason : AM EKG Blood Pressure : / mmHG Vent. Rate : 065 BPM Atrial Rate : 065 BPM P-R Int : 164 ms QRS Dur : 088 ms QT Int : 408 ms P-R-T Axes : 049 059 040 degrees QTc Int : 424 ms Normal sinus rhythm Normal ECG When compared with ECG of 05-AUG-2019 18:39, MANUAL COMPARISON REQUIRED, DATA IS UNCONFIRMED Confirmed by JANAY GUILLEN ([id number]), supervising editor news reel SANDI JEROME ([id number]) on 08/09/2019 11:41:21 AM Referred By: DR REYNOLDS Confirmed By:JANAY GUILLEN
[2019-08-05] MEDS: Nitroglycerin (INPATIENT USE) 0.4 MG TAB.SUBL SUBLINGUAL (18:36)
--- NOTE | 2019-08-05 18:40 | NURSING ---
this RN called to room for chest pain. pt diaphoretic and flushed, c/o CP 6/10, radiating to jaw and back. Placed on 2L N/C. EKG obtained, BP 140/78, HR 80. Nitro given x1
[2019-08-05] MEDS: Atorvastatin Calcium 40 MG Tablet PO (21:59)
[2019-08-05] MEDS: 0.9% Saline Lock 10 ML Syringe IV (22:00)
[2019-08-05 22:16] LABS: Bedside Glucose 201 mg/dL (70-110)
[2019-08-06] VITALS (8 sets, daily range): BP systolic 111–123; BP diastolic 64–72; PULSE 63–79; RESP 18; TEMP 36.4–36.5; O2SAT 95–96
[2019-08-06] MEDS: 0.9% Saline Lock 10 ML Syringe IV ×2 (00:08→10:26)
[2019-08-06] MEDS: Lisinopril 40 MG Tablet PO (06:08)
[2019-08-06 06:16] LABS: Bedside Glucose 209 mg/dL (70-110)
--- NOTE | 2019-08-06 08:36 | STRESSREP ---
Stress Test Report Pharmacologic myocardial perfusion stress test. 53-year-old male with a history of chest pain. Stress protocol: Resting EKG demonstrates normal sinus rhythm with a rate of 73 bpm normal intervals are noted resting blood pressure is 118/80 mmHg. 0.4 mg of regadenoson was infused per usual protocol followed by Intravenous saline flush injection continuous EKG monitoring was performed. The maximum heart rate attained was 104 bpm which was 63% of maximum predicted heart rate the maximum workload was 1 metabolic equivalent. At rest there were no ST or T wave changes noted to suggest abnormal flow reserve at peak infusion nonspecific ST-T wave changes were noted suggest abnormal flow reserve. No clinical angina was noted. Resting blood pressure was 118/80. Myocardial perfusion protocol. 14.8 mCi of technetium 99m sestamibi was injected at rest. 0.4 mg of regadenoson was infused per usual protocol. At peak infusion 45.0 mCi of technetium 99m sestamibi was injected stress images were obtained stress and rest images were reconstructed and compared in the short axis vertical long horizontal long axis. Gated images were also obtained per Perfusion SPECT analysis: Review of the stress images demonstrate normal uptake of tracer noted in all areas of the myocardium the resting images similar demonstrate normal uptake of tracer noted in all areas of the myocardium. No areas of reversibility are noted suggest ischemia. Gated SPECT analysis: The gated ejection fraction is noted to be 63%. Conclusion: Normal pharmacologic myocardial perfusion stress test. Preserved ejection fraction.
[2019-08-06] MEDS: Acetaminophen 325 MG Tablet 650 MG PO (08:38)
[2019-08-06 08:48] LABS: Absolute Lymphocyte Count 2.65 X10^3/uL (0.83-4.51); Absolute Neutrophil Count 4.8 X10^3/uL (2.0-7.7); Basophil# 0.06 X10^3/uL; Basophil% 0.7 % (0-1); Eosinophil# 0.41 X10^3/uL; Eosinophils% 4.7 % (0-5); Hematocrit 45.1 % (40-54); Lymphocyte # 2.65 X10^3/ul (4.0); Lymphocyte % 30.6 % (19-41); Mean Corp Hgb Conc 33.3 g/dL (32-36); Mean Corpuscular Hgb 28.7 pg (27.0-32.0); Mean Corpuscular Volume 86.4 fL (80-94); Monocyte# 0.74 X10^3/uL; Monocyte% 8.5 % (0-10); NRBC Flagged by Analyzer 0 % (0-5); Neutrophil # 4.78 X10^3/uL (2.7-7.7); Neutrophil % 55.2 % (47-70); Platelet Count 227 K/mm3 (150-450); RBC Distribution Width CV 12.9 % (11.6-14.6); RBC Distribution Width SD 40.2 fl (35.1-43.9); Red Blood Count 5.22 M/mm3 (4.6-6.2); White Blood Count 8.7 K/mm3 (4.4-11.0)
[2019-08-06 09:20] LABS: ALB/GLOB Ratio 0.8 RATIO (0.9-2.4); AST(SGOT) 26 U/L (15-37); Alanine Aminotransfer ALT/SGPT 64 U/L (16-61); Albumin, Serum 3.1 g/dL (3.2-5.0); Alkaline Phosphatase 107 U/L (45-117); Anion Gap 6 (5-15); BUN 18 mg/dL (7-18); BUN/Creat Ratio 15.8 RATIO (10-20); Calcium,Total 8.7 mg/dL (8.5-10.1); Chloride 104 mmol/L (98-107); Creatinine, Serum 1.14 mg/dL (0.70-1.30); EST Glomerular Filtration Rate 71 mL/min (>60); Est Glom Filt Rate - Afr Amer 86 mL/min (>60); Estimated Creatinine Clearance 82.74 ml/min; Globulin 3.9 g/dL (2.2-4.2); Glucose 255 mg/dL (74-106); Potassium 4.1 mmol/L (3.5-5.1); Sodium Level 136 mmol/L (136-145)
[2019-08-06] MEDS: hydroCHLOROthiazide 25 MG Tablet PO (10:22)
--- NOTE | 2019-08-06 11:01 | DCINST_ITS ---
- Discharge Diagnoses Reason(s) for Visit for Discharge Instructions: Chest pain You will use the following diet at home:: Calorie/Carbohydrate Controlled (specify 1200, 1400, etc), Cardiac Your food should be the consistency of: Regular Your liquids should be the consistency of: Regular/Thin Discharge Activity: Return to Normal Activity Additional Instructions: Continue to take all your medications as prescribed. Take note of changes in your metformin. Check your blood glucose daily and show a log of your sugars to your primary care doctor. Allergies/Adverse Reactions: Allergies hydrocodone bitartrate [From Vicodin] Adverse Reaction (Verified 08/05/19 10:36) Nausea Medications to take at Discharge Atorvastatin Calcium [Lipitor] 40 mg PO QHS 04/26/18 Lisinopril/Hydrochlorothiazide [Zestoretic 20/.5 Tablet] 2 tablet PO DAILY 04/26/18 proMETHazine tablet [Phenergan tablet] 25 mg PO Q6H PRN PRN #10 tab 05/29/19 Metformin HCl 1,000 mg PO BID 30 Days #60 tab 08/06/19 The following prescriptions were given: Metformin HCl 1,000 mg PO BID 30 Days #60 tab Transmission Status: Pending to [id number] Primary Care Physician: Lalo Weiner DO [Primary Care Provider] - Please follow up with your Primary Care Physician in: within 1-2 weeks Test Results: Test results from this visit will be discussed in further detail at your follow- up appointment, if applicable. Proposed Discharge Date: 08/06/19
--- NOTE | 2019-08-06 11:04 | PCM.DC.SUM ---
Discharge Date and Diagnosis Date of Admission: 08/05/19 Date of Discharge: 08/06/19 - Primary Discharge Diagnosis Chest pain Hyperglycemia - Secondary Discharge Diagnosis Chronic Problems Diverticulitis (Chronic) Noted 2 prior episodes of diverticulitis. Diabetes mellitus, type II (Chronic) Mild cognitive impairment (Chronic) Chronic back pain (Chronic) Tobacco use (Chronic) COPD (chronic obstructive pulmonary disease) (Chronic) Hyperlipidemia (Chronic) Hypertension (Chronic) Morbid obesity (Chronic) Hospital Course and Treatment Imaging Results: 08/06/19 05:55 Nuclear Stress Test - Chemical [NM] AM (NON MEDS) Clinical Impression(s) from Imaging Studies Chest X-Ray 08/05/19 11:10 IMPRESSION: No acute abnormality is seen. Electronically Signed: Jorje Porfirio, at 11:44 EDT , Service support , None Operations: None Procedures: Stress test Summary of Care Provided: 53 year old M with past medical history of hypertension, hyperlipidemia, type II DM, morbid obesity who comes in with complaints of chest pain that started 6 days ago. Patient underwent nuclear stress test that was negative. He continued to complain of chest discomfort. Was given a trial of Mylanta in prescribe PPI twice daily. He was asked to follow-up with cardiology in 1 to 2 weeks in the outpatient. His blood sugars were uncontrolled at discharge, his metformin was increased to 1000 mg twice a day. He was asked to keep a log of his blood sugars. He will follow-up with his primary care doctor within a week with a log of his sugars. Subjective: On the day of discharge, patient was seen and examined. He still had chest discomfort, felt like burning. Stress test was negative. Was given Mylanta and asked to buy Mylanta [id number]. He was also prescribed PPI. Objective: Physical exam: General: Alert, Oriented x3, Cooperative, No apparent distress HEENT: Atraumatic, PERRLA, EOMI, Normocephalic Oral: Moist Mucosa Neck: Supple Lungs: Clear to auscultation, Normal air movement Cardiovascular: Regular rate, Regular Rhythm, Normal S1, Normal S2, No murmurs Abdomen: Bowel Sounds Present, Soft, Non Tender, Non-Distended, No Hepato-splenomegaly Extremities: No edema, Capillary Refill Less than 3 Seconds Skin: No rashes, No breakdown Musculoskeletal: No Tenderness to Palpation of Joints or Extremities Neurological: Cranial nerves II-XII grossly intact Psych/Mental Status: Normal Affect, Appropriate - Physical Exam Vitals/I&O's: Vital Signs Temp Pulse Resp BP Pulse Ox 97.6 F L 71 18 111/64 96 08/06/19 10:58 08/06/19 10:58 08/06/19 10:58 08/06/19 10:58 08/06/19 10:58 Oxygen Delivery Method Room Air Weight: 147.9 kg Body Mass Index (BMI) 43.0 Intake and Output for Last 24 Hours 08/04/19 08/05/19 08/06/19 23:59 23:59 23:59 Intake Total 591 / 591 743.5 / 743.5 Balance 591 / 591 743.5 / 743.5 Laboratory Results 08/05/19 11:01: WBC 10.0, RBC 5.22, Hgb 15.0, Hct 44.8, MCV 85.8, MCH 28.7, MCHC 33.5, RDW Std Deviation 41.4, RDW Coeff of Ivory 13.3, Plt Count 218, MPV 9.7, Immature Gran % (Auto) 0.300, Neut % (Auto) 63.2, Lymph % (Auto) 23.9, [place] % (Auto) 8.1, Eos % (Auto) 3.8, Baso % (Auto) 0.7, Absolute Neuts (auto) 6.3, Absolute Lymphs (auto) 2.39, Nucleated RBC % 0 08/05/19 11:01: Sodium 135 L, Potassium 4.2, Chloride 102, Carbon Dioxide 26.0, Anion Gap 7, BUN 20 H, Creatinine 1.22, Estim Creat Clear Calc 77.32, Est GFR (MDRD) Af Amer 79, Est GFR (MDRD) Non-Af 65, BUN/Creatinine Ratio 16.4, Glucose 259 H, Calcium 9.1, Troponin I < 0.015 08/05/19 11:01: Total Bilirubin 0.50, Direct Bilirubin 0.12, AST 29, ALT 70 H, Alkaline Phosphatase 109, Total Protein 7.2, Albumin 3.3, Globulin 3.9 08/05/19 14:00: Troponin I < 0.015 08/05/19 16:40: Troponin I < 0.015 08/05/19 16:58: POC Glucose 204 H 08/05/19 21:51: POC Glucose 201 H 08/06/19 06:06: POC Glucose 209 H 08/06/19 08:30: WBC 8.7, RBC 5.22, Hgb 15.0, Hct 45.1, MCV 86.4, MCH 28.7, MCHC 33.3, RDW Std Deviation 40.2, RDW Coeff of Ivory 12.9, Plt Count 227, MPV 10.0, Immature Gran % (Auto) 0.300, Neut % (Auto) 55.2, Lymph % (Auto) 30.6, [place] % (Auto) 8.5, Eos % (Auto) 4.7, Baso % (Auto) 0.7, Absolute Neuts (auto) 4.8, Absolute Lymphs (auto) 2.65, Nucleated RBC % 0 08/06/19 08:30: Sodium 136, Potassium 4.1, Chloride 104, Carbon Dioxide 26.0, Anion Gap 6, BUN 18, Creatinine 1.14, Estim Creat Clear Calc 82.74, Est GFR (MDRD) Af Amer 86, Est GFR (MDRD) Non-Af 71, BUN/Creatinine Ratio 15.8, Glucose 255 H, Calcium 8.7, Total Bilirubin 0.60, AST 26, ALT 64 H, Alkaline Phosphatase 107, Total Protein 7.0, Albumin 3.1 L, Globulin 3.9, Albumin/Globulin Ratio 0.8 L Current Medications Acetaminophen (Tylenol) 650 mg PO Q6H PRN PRN PRN Reason: Pain Score 1-10/Temp > 100.7 F Last Admin: 08/06/19 08:38 Dose: 650 mg Documented by: Atorvastatin Calcium (Lipitor) 40 mg PO QHS [facility] Last Admin: 08/05/19 21:59 Dose: 40 mg Documented by: Heparin Sodium (Porcine) (Heparin Na) 5,000 unit SC Q8 [facility] Last Admin: 08/05/19 22:08 Dose: Not Given Documented by: Hydrochlorothiazide (Hctz) 25 mg PO DAILY [facility] Last Admin: 08/06/19 10:22 Dose: 25 mg Documented by: Sodium Chloride () 250 mls @ 15 mls/hr IV .[id number] PRN PRN Reason: Saline Flush Last Infusion: 08/06/19 00:18 Dose: 0 mls/hr Documented by: Sodium Chloride () 250 mls @ 15 mls/hr IV .[id number] PRN PRN Reason: Additional IVPB Infusion Pantoprazole Sodium 40 mg/ (Sodium Chloride) 110 mls @ 330 mls/hr IV Q12 [facility] Last Infusion: 08/06/19 11:01 Dose: Infused Documented by: Insulin Human Lispro (Humalog Kwikpen (Bkc)) 0 unit SC ACHS [facility]; Protocol Last Admin: 08/06/19 08:42 Dose: Not Given Documented by: Lisinopril (Zestril) 40 mg PO DAILY [facility] Last Admin: 08/06/19 06:08 Dose: 40 mg Documented by: Nitroglycerin (Nitrostat) 0.4 mg SUBLINGUAL Q5M PRN PRN Reason: CARDIAC/CHEST PAIN Last Admin: 08/05/19 18:36 Dose: 0.4 mg Documented by: Oxycodone HCl (Oxyir) 5 mg PO Q4H PRN PRN PRN Reason: Pain Score 4-10/10 Promethazine HCl (Phenergan Tablet) 25 mg PO Q6H PRN PRN PRN Reason: NAUSEA Sodium Chloride () 10 - 40 ml IV UD PRN PRN Reason: SALINE FLUSH Last Admin: 08/06/19 10:26 Dose: 10 ml Documented by: Discharge Diet: Low fat/ Low Cholesterol, 2000 mg Sodium Diet, Carb Control Diet Discharge Activity: Return to Normal Activity Home Medications: Medications to take at Discharge Atorvastatin Calcium [Lipitor] 40 mg PO QHS 04/26/18 Lisinopril/Hydrochlorothiazide [Zestoretic /.5 Tablet] 2 tablet PO DAILY 04/26/18 proMETHazine tablet [Phenergan tablet] 25 mg PO Q6H PRN PRN #10 tab 05/29/19 Metformin HCl 1,000 mg PO BID 30 Days #60 tab 08/06/19 Pantoprazole Sodium 40 mg PO BID 30 Days #60 tablet. 08/06/19 Following Prescrptions Were Given to Patient: Metformin HCl 1,000 mg PO BID 30 Days #60 tab Transmission Status: Received by [id number] Pantoprazole Sodium 40 mg PO BID 30 Days #60 tablet.dr Transmission Status: Received by [id number] Primary Care Physician: Lalo Weiner DO [Primary Care Provider] - Please follow up with your Primary Care Physician in: within 1-2 weeks Disposition: Home Minutes spent on discharge:: 35 Patient Condition:: Stable Medical Necessity - Tobacco Use Smoking Status: Former smoker - quit 3 days ago Tobacco Use: Cigarettes Meaningful Use Info Meaningful Use Diagnoses (Choose all that apply): None applicable OBSV E&M: 23771 Observation care discharge
--- NOTE | 2019-08-06 11:18 | PHA.DC.MC ---
Pharmacy Service has performed discharge medication reconciliation and counseling for this patient. 1. METFORMIN 1000MG PO BID The patient's discharge medication list was reviewed for discrepancies and discrepancies were resolved. Home Medications Atorvastatin Calcium [Lipitor] 40 mg PO QHS 04/26/18 Lisinopril/Hydrochlorothiazide [Zestoretic 07/05.5 Tablet] 2 tablet PO DAILY 04/26/18 proMETHazine tablet [Phenergan tablet] 25 mg PO Q6H PRN PRN #10 tab 05/29/19 Metformin HCl 1,000 mg PO BID 30 Days #60 tab 08/06/19 The patient was counseled on the following discharge medications and changes in medications for homegoing were reviewed. The Reason for Use, instructions for use, and potential side effects were reviewed for all new medications. The patient's questions regarding all of their medications were answered. The patient was able to verbally demonstrate an understanding of their discharge medications.
[2019-08-06 11:33] LABS: Hemoglobin A1c 8.4 % (4.2-6.3)
[2019-08-06] MEDS: Insulin Lispro 100 UNIT/ML INSULN.PEN SC (11:53)
[2019-08-06 11:55] LABS: Bedside Glucose 292 mg/dL (70-110)
[2019-08-06] MEDS: Mag Hydrox/Al Hydrox/Simeth 30 ML UDC PO (11:55)
== END 2019-08-06 10:58 | disposition home or self-care (01) ==
LOC: ED 12:09 → PCU 14:01
PROVIDERS: Admitting Provider Internal Medicine; Emergency Provider Emergency Medicine; PCP Student in an Organized Health Care Education/Training Program; Visit Provider Internal Medicine
DX: R07.89 Other chest pain (principal); I10 Essential (primary) hypertension; E11.9 Type 2 diabetes mellitus without complications; J44.9 Chronic obstructive pulmonary disease, unspecified; R06.02 Shortness of breath; K76.0 Fatty (change of) liver, not elsewhere classified; E78.5 Hyperlipidemia, unspecified; G31.84 Mild cognitive impairment of uncertain or unknown etiology; E66.01 Morbid (severe) obesity due to excess calories; Z68.41 Body mass index [BMI] 40.0-44.9, adult; Z71.3 Dietary counseling and surveillance; Z87.891 Personal history of nicotine dependence; Z79.899 Other long term (current) drug therapy; Z79.84 Long term (current) use of oral hypoglycemic drugs; E11.65 Type 2 diabetes mellitus with hyperglycemia
CPT/HCPCS: 36415; 71046; 78452; 80048; 80053; 80076; 82962; 83036; 84484; 85025; 93005; 93017; 96365; 96366; 96372; 97802; 99218; 99251; 99285; 99406; A9500; J7050; A4216; G0378; G0463; J2785

== ENCOUNTER 2019-08-16 07:56 | Day surgery (SDC) | payer MEDICARE, SELFPAY ==
[2019-08-13 12:07] VITALS: BMI 42.7
[2019-08-16 07:17] VITALS: BMI 42.7
--- NOTE | 2019-08-16 10:16 | CL.D_ITS ---
Patient Name: ALLAN FELIPE Study Date: 08/16/2019 Performing: Dajuan Ovalle MD Ht: 72.83 inches 185 cm : 1965 Wt: 324.08 lbs 147 kg Age: 53 Gender: male BSA: 2.64 PROCEDURE(S) PERFORMED [id number]-[id number]/COR/LV CLINICAL PROFILE AND INDICATIONS Indications: Suspected CAD Heart Failure: None Stress/Imaging Date: 08/06/19tress Test with SPECT MPI: Negative CAD Presentations: Stable angina. CONCLUSIONS Non obstructive coronary arteries RECOMMENDATIONS Medical therapy DESCRIPTION OF PROCEDURE The patient arrived to the procedure lab. The risks and benefits of the procedure as well as a full d escription of our services here and current unavailability of surgical backup were fully explained to the patient and/or their significant other prior to the catheterization. The Timeout was completed, verifying the correct patient and procedure. The patient's procedural site was prepped and draped in the usual fashion. Local anesthetic was given subcutaneously to right groin region with Lidocaine 2%. Using a modified Seldinger technique, arterial access was obtained via the right femoral artery, a 5 Fr sheath was inserted. Left Coronary Artery selective angiography was performed in multiple views u sing a 5 Fr. JL4 catheter. Right Coronary Artery selective angiography was then performed in multiple views using a 5 Fr. 3DRC (Quinton) catheter. Left Ventriculography was performed in LAINEZ projection using a 5 Fr. Pigtail catheter. LV to AO pullback pressures were then recorded.Contrast was injected through the sheath and the Right Iliac and Femoral artery were assessed for possible shira sure device.The arterial sheath was pulled and a Mynx closure device was deployed for hemostasis CORONARY ANGIOGRAPHY DOMINANCE: Right Dominant LEFT HEART ASSESSMENT Left Ventricular Ejection Fraction: by LV Gram 60 % Normal LV wall motion Normal Left Ventricular systolic function LEFT MAIN: Angiographically normal LEFT ANTERIOR DESCENDING ARTERY: Mild luminal irregularities CIRCUMFLEX ARTERY: Mild luminal irregularities less than 30% RIGHT CORONARY ARTERY: Mild luminal irregularities RT PDA: Ostial - 60 % Stenosis COMPLICATIONS No Complications PROCEDURE MEDICATIONS Versed 1 mg IV Fentanyl 50 mcg IV Oxygen: 2 L/min via nasal cannula SUMMARY OF HEMODYNAMIC DATA Time AIR REST ECG 08:19:31 AO 94/69 (82) SA 09:41:24 LV 102/7, 20 09:48:03 LV 104/5, 10 09:48:10 LV 98/7, 12 09:48:57 LV 92/9, 15 09:49:04 LVp 99/7, 14 09:49:28 AO 98/69 (82) 09:49:33 Signed By Dajuan Ovalle MD On 08/16/2019 10:15:41 Dajuan Ovalle MD
== END 2019-08-16 12:36 | disposition home or self-care (01) ==
LOC: CLSP 07:58
PROVIDERS: PCP Student in an Organized Health Care Education/Training Program; Referring Provider Internal Medicine Cardiovascular Disease; Visit Provider Internal Medicine Cardiovascular Disease
DX: R07.9 Chest pain, unspecified (principal); I10 Essential (primary) hypertension; R06.00 Dyspnea, unspecified; E78.5 Hyperlipidemia, unspecified
CPT/HCPCS: 93458; 99152; 99153; C1760; Q9967; C1769

== ENCOUNTER 2019-11-29 13:17 | Emergency (ER) | payer MEDICARE, SELFPAY ==
[2019-11-29 13:18] VITALS: BP 134/83; PULSE 86; RESP 19; TEMP 37; O2SAT 96; BMI 42.5
--- NOTE | 2019-11-29 13:25 | EKG12_ITS ---
Test Reason : Blood Pressure : / mmHG Vent. Rate : 082 BPM Atrial Rate : 082 BPM P-R Int : 152 ms QRS Dur : 084 ms QT Int : 372 ms P-R-T Axes : 047 064 040 degrees QTc Int : 434 ms Normal sinus rhythm Low voltage QRS Borderline ECG When compared with ECG of 06-AUG-2019 06:01, No significant change was found Confirmed by NINA GASPAR, VLADISLAV ([id number]), market editor WARD PILLAI ([id number]) on 12/06/2019 11:08:29 AM Referred By: CHERYL Confirmed By:VLADISLAV WOOD MD
--- NOTE | 2019-11-29 13:25 | RAD_ITS ---
STUDY: X-RAY CHEST REASON FOR EXAM: Male, 54 years old. CHEST PAIN X 2 DAYS, SHORTNESS OF BREATH, LEFT JAW/SHOULDER PAIN TECHNIQUE: Single AP portable view of the chest. COMPARISON: Comparison is made with prior study dated August 05, 2019. FINDINGS: EKG electrodes are seen. The lungs are clear and expanded. There is no demonstrated pleural abnormality. Normal size heart. Normal mediastinum and jojo. Normal visualized pulmonary arteries. Normal visualized aortic arch and descending thoracic aorta. There are diffuse degenerative changes of the visualized thoracic spine. Normal visualized ribs, clavicles, and shoulders. There is no demonstrated abnormality of the visualized soft tissue structures of the upper abdomen. RAD/Chest 1 View (Portable) IMPRESSION: No acute abnormality is seen. Electronically Signed: Jorje Monroy, at 14:15 EDT , Service support ,
[2019-11-29 13:28] VITALS: O2SAT 95
--- NOTE | 2019-11-29 13:37 | ED.DCSUM_ITS ---
- ER Visit Summary Date of Service: 11/29/19 Chief Complaint: [Chest pain] History of Present Illness: The patient is a 54 M [presents to the emergency department with complaint of chest discomfort that started yesterday. Patient states the discomfort has been intermittent but describes it as a pressure and heaviness that radiates at times into his jaw and left shoulder. Patient complains of nausea which she states is chronic however. He does feel somewhat short of breath. He had similar discomfort a couple of months ago at which time he was seen by Dr. Dina Song who performed a heart catheterization and from what the patient tells me he did not require any type of stenting and no significant blockages were noted. Patient denies recent travel or surgery. He denies recent illness. Currently he rates his pain a 2 out of 10.] Patient has history of COPD, GERD, hypertension, and high cholesterol. Physical Examination: [HEENT-PERRLA, EOMI. Cranial nerves II through XII grossly intact. TMs clear. Mucous membranes moist. No adenopathy. Cardiovascular-regular rate and rhythm without murmur or ectopy Lungs-clear to auscultation, chest wall stable without crepitus or subcu emphysema Abdomen-normoactive bowel sounds, soft, nontender, no rebound or rigidity, no pe ritoneal signs. Extremities-intact ?4, normal range of motion, normal pulses, atraumatic] Test Results: [EKG obtained arrival shows sinus rhythm with a ventricular rate of 62 bpm with no acute segment changes noted.] CBC with differential obtained was unremarkable. Chemistries unremarkable. Troponin was less than 0.015. D- dimer was 0.48. Chest x-ray unremarkable. Emergency Department Course and Treatment: [ Established. 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 Ovalle who did not feel any further intervention was indicated at this time and did evaluate patient's heart cath. Patient to follow-up with his office if further symptoms. Treatment Plan: [Follow up with cardiology.] Disposition: [Discharged home in stable condition] Impression: [Chest pain-etiology uncertain] This note was generated with [employer] software. It may contain incorrect words, spelling, and punctuation that were not noted in review of the chart prior to signing ED Disposition - Plan for ED Patient: Referrals: Lalo Weiner DO [Primary Care Provider] -
[2019-11-29 13:39] LABS: Absolute Lymphocyte Count 2.66 X10^3/uL (0.83-4.51); Absolute Neutrophil Count 6.3 X10^3/uL (2.0-7.7); Basophil# 0.08 X10^3/uL; Basophil% 0.8 % (0-1); Eosinophil# 0.38 X10^3/uL; Eosinophils% 3.7 % (0-5); Hematocrit 46.5 % (40-54); Hemoglobin 15.5 g/dL (13.0-16.5); Lymphocyte # 2.66 X10^3/ul (4.0); Lymphocyte % 25.9 % (19-41); Mean Corp Hgb Conc 33.3 g/dL (32-36); Mean Corpuscular Hgb 28.9 pg (27.0-32.0); Mean Corpuscular Volume 86.6 fL (80-94); Mean Platelet Vol. 9.6 fl (6.2-12.0); Monocyte# 0.84 X10^3/uL; Monocyte% 8.2 % (0-10); NRBC Flagged by Analyzer 0 % (0-5); Neutrophil # 6.28 X10^3/uL (2.7-7.7); Platelet Count 290 K/mm3 (150-450); RBC Distribution Width SD 43.6 fl (35.1-43.9); Red Blood Count 5.37 M/mm3 (4.6-6.2); White Blood Count 10.3 K/mm3 (4.4-11.0)
[2019-11-29 13:46] LABS: Prothrombin Time (Protime)PT. 12.9 SECONDS (11.7-14.9)
[2019-11-29 13:56] LABS: Anion Gap 7 (5-15); BUN 21 mg/dL (7-18); BUN/Creat Ratio 18.1 RATIO (10-20); Calcium,Total 8.8 mg/dL (8.5-10.1); Chloride 104 mmol/L (98-107); Creatinine, Serum 1.16 mg/dL (0.70-1.30); EST Glomerular Filtration Rate 69 mL/min (>60); Est Glom Filt Rate - Afr Amer 84 mL/min (>60); Estimated Creatinine Clearance 80.36 ml/min; Glucose 119 mg/dL (74-106); Sodium Level 136 mmol/L (136-145)
[2019-11-29 14:56] LABS: D-Dimer Quantitative (DVT/PE) 0.48 FEU/ug/m (0.27-0.49)
--- NOTE | 2019-11-29 15:16 | ED.DEP ---
ED Disposition - Plan for ED Patient: Instructions: ED Chest Pain Atypical Unkn Cause Referrals: Lalo Weiner DO [Primary Care Provider] - Dajuan Ovalle MD [STAFF PHYSICIAN] - 5-7 Days
[2019-11-29 15:25] VITALS: BP 112/71; PULSE 73; RESP 18; O2SAT 97
== END 2019-11-29 15:26 | disposition home or self-care (01) ==
LOC: ED 13:50
PROVIDERS: Emergency Provider Emergency Medicine; PCP Student in an Organized Health Care Education/Training Program
DX: R07.9 Chest pain, unspecified (principal); E78.00 Pure hypercholesterolemia, unspecified; J44.9 Chronic obstructive pulmonary disease, unspecified; I10 Essential (primary) hypertension; K21.9 Gastro-esophageal reflux disease without esophagitis
CPT/HCPCS: 71045; 80048; 84484; 85025; 85379; 85610; 93005; 99284; A4216

== ENCOUNTER 2020-01-26 11:18 | Emergency (ER) | payer MEDICARE, SELFPAY ==
[2019-12-13 10:11] VITALS: BMI 41.8
[2020-01-26 11:19] VITALS: BP 151/120; PULSE 89; RESP 21; TEMP 37; O2SAT 98; BMI 42.4
[2020-01-26 11:23] VITALS: PULSE 92; RESP 18; O2SAT 99
--- NOTE | 2020-01-26 11:23 | EKG12_ITS ---
Test Reason : CP SOB Blood Pressure : / mmHG Vent. Rate : 090 BPM Atrial Rate : 090 BPM P-R Int : 176 ms QRS Dur : 066 ms QT Int : 332 ms P-R-T Axes : 060 070 061 degrees QTc Int : 406 ms Normal sinus rhythm Low voltage QRS Septal infarct , age undetermined Abnormal ECG Confirmed by NINA GASPAR, VLADISLAV ([id number]), assistant editor WARD PILLAI ([id number]) on 01/31/2020 12:50:40 PM Referred By: ALFRED Confirmed By:VLADISLAV WOOD MD
--- NOTE | 2020-01-26 11:23 | RAD_ITS ---
STUDY: X-RAY CHEST REASON FOR EXAM: Male, 54 years old. SOB, WEAKNESS X 3 DAYS TECHNIQUE: Single AP portable view of the chest. COMPARISON: Comparison is made with prior study dated 11/29/2019. FINDINGS: EKG electrodes are seen. The lungs are clear and expanded. There is no demonstrated pleural abnormality. Normal size heart. Normal mediastinum and jojo. Normal visualized pulmonary arteries. Normal visualized aortic arch and descending thoracic aorta. There are degenerative changes of the visualized thoracic spine. Normal visualized ribs, clavicles, and shoulders. There is no demonstrated abnormality of the visualized soft tissue structures of the upper abdomen. RAD/Chest 1 View (Portable) IMPRESSION: Normal x-ray examination of the chest. Electronically Signed: Jorje Monroy, at 12:25 EDT , Service support ,
--- NOTE | 2020-01-26 11:26 | ED.VIS.GEN ---
History of Present Illness Chief Complaint: Shortness of Breath Informant: Patient Onset: Yesterday Context: Gradual Onset Timing: Continuous Current Severity: Moderate Maximum Severity: Moderate Narrative: The patient is a 54-year-old male with medical history significant for hypertension and smoking the presents to the emergency department shortness of breath and weakness. The patient states his symptoms began about 48 hours ago. He states he had a scant cough. He states today, he just feels feeling worse. He denies fevers, but does admit to some chills. He describes a tightness across his chest with coughing. He denies any nausea or vomiting. He has no history of underlying coronary vascular disease. He did have a recent heart catheterization which he states was negative. Prior similar symptoms: Yes Recent Illness/Hospitalization: No Past Medical History - Allergies and Home Meds Allergies/Adverse Reactions: Allergies hydrocodone bitartrate [From Vicodin] Adverse Reaction (Verified 01/26/20 11:18) Nausea Primary Care Physician: Lalo Weiner DO [Primary Care Provider] - Prior records reviewed: Yes Past Medical History: - - HTN, COPD Surgical History: noncontributory, - - right calcaneal fracture repair, discectomy lumbar, left retinal surgery Smoking Status: Current every day smoker - Family History Maternal Family History: Family History (Last Reviewed 08/13/19 @ 14:[address] Dajuan Ovalle MD) Father Heart disease Hypertension Myocardial infarction, Onset Age: 50 CAD (coronary artery disease) Mother Hypertension CVA (cerebral vascular accident) Grandfather Myocardial infarction, Onset Age: 50 CAD (coronary artery disease) Family History: Reports: Hypertension, Stroke Paternal Family History: Family History (Last Reviewed 08/13/19 @ 14:[address] Dajuan Ovalle MD) Father Heart disease Hypertension Myocardial infarction, Onset Age: 50 CAD (coronary artery disease) Mother Hypertension CVA (cerebral vascular accident) Grandfather Myocardial infarction, Onset Age: 50 CAD (coronary artery disease) Family History: Reports: Heart Disease, Hypertension Review of Systems General: Denies: Chills, Fever, Sweats Eyes: Denies: Visual changes - bilaterally, Diplopia ENT: Denies: Rhinorrhea, Sore throat Cardiovascular: Reports: Chest pain. Denies: Palpitations Respiratory: Reports: Dyspnea, Cough. Denies: Dyspnea on exertion Gastrointestinal: Denies: Abdominal pain, Nausea, Vomiting, Diarrhea, Melena, Hematochezia Genitourinary: Denies: Dysuria, Hematuria, Frequency Musculoskeletal: Denies: Back pain, Extremity Pain Skin: Denies: Rash, Wounds Neurological: Denies: Headache, Weakness, Numbness Physical Exam Vital Signs/Narrative: Vital Signs Temp Pulse Resp BP Pulse Ox 01/26/20 11:23 92 18 99 01/26/20 11:19 98.6 F 89 21 H 151/120 H 98 Inital Vital Signs reviewed: Yes General: Well nourished, Well developed, No Acute Distress Head: Normocephalic, Atraumatic Eyes: Perrl, EOMI ENT: Moist mucous membranes, No rhinorrhea Neck: Supple, Nontender Cardiovascular: Regular rate, Regular rhythm, No murmurs Respiratory: No distress, Chest nontender, Wheezing, Diminished Abdomen: Soft, Nontender, Nondistended, Normal bowel sounds Back: Nontender, Normal Inspection Extremities: Nontender, No edema Skin: Normal color, No rash Neurological: Alert, Oriented x3, Cranial nerves II-XII grossly intact, Normal Strength, Normal Sensation Psychological: Normal affect, Normal Mood Diagnostic/Tx/Re-eval Clinical Impression(s) from Imaging Studies Chest X-Ray 01/26/20 11:23 IMPRESSION: Normal x-ray examination of the chest. Electronically Signed: Jorje Monroy, at 12:25 EDT , Service support , Abnormal Lab Results 01/26/20 01/26/20 01/26/20 11:20 11:20 11:20 WBC 12.0 H RBC 5.41 Hgb 15.6 Hct 46.5 MCV 86.0 MCH 28.8 MCHC 33.5 RDW Std Deviation 43.2 RDW Coeff of Ivory 13.9 Plt Count 288 MPV 9.8 Immature Gran % (Auto) 0.500 Neut % (Auto) 62.7 Lymph % (Auto) 25.4 [place] % (Auto) 7.5 Eos % (Auto) 3.3 Baso % (Auto) 0.6 Absolute Neuts (auto) 7.5 Absolute Lymphs (auto) 3.04 Nucleated RBC % 0 Sodium 136 Potassium 4.3 Chloride 104 Carbon Dioxide 25.0 Anion Gap 7 BUN 18 Creatinine 1.27 Estim Creat Clear Calc 73.40 Est GFR (MDRD) Af Amer 75 Est GFR (MDRD) Non-Af 62 BUN/Creatinine Ratio 14.2 Glucose 174 H Calcium 9.1 Troponin I < 0.015 B-Natriuretic Peptide 14.5 - Rhythm Strip Rhythm Strip: Sinus Rhythm Rate: 70 Ectopy: None - EKG Initial EKG Interpretation: Sinus Rhythm, No Acute Injury Pattern Prior: Unchanged - Medical Decision Making Patient presents with shortness of breath, chest tightness, and cough. He has mild tachypnea, was not hypoxic or tachycardic. He did have prolonged expiration with scant wheezing. Metabolic work-up was pursued. EKG demonstrates sinus rhythm without acute ischemia. Chest x-ray was unremarkable for acute infectious process or focal infiltrative process. Cardiac enzymes were negative. BNP was normal. After treatment, he is feeling improved. This does seem to be more consistent with COPD flare versus bronchitis. With his significant smoking history, I am going to treat him with prednisone and doxycycline. He will also be given an inhaler. I do feel that he is safe for outpatient therapy. Impression 1. Acute bronchitis with bronchospasm ED Disposition - Plan for ED Patient: Instructions: ED Upper Resp Infec Abx Tx Prescriptions: Prednisone [Deltasone] 60 mg PO DAILY #15 tab Prescription Printed Doxycycline 100 mg PO BID #20 cap Prescription Printed Albuterol Inhaler [Ventolin Hfa] 2 puff INHALATION Q4H PRN PRN #1 inhaler PRN Reason: Wheezing Prescription Printed Referrals: Lalo Weiner DO [Primary Care Provider] -
[2020-01-26 11:28] VITALS: O2SAT 98
[2020-01-26 11:30] LABS: Absolute Lymphocyte Count 3.04 X10^3/uL (0.83-4.51); Absolute Neutrophil Count 7.5 X10^3/uL (2.0-7.7); Basophil# 0.07 X10^3/uL; Basophil% 0.6 % (0-1); Eosinophil# 0.39 X10^3/uL; Eosinophils% 3.3 % (0-5); Hematocrit 46.5 % (40-54); Hemoglobin 15.6 g/dL (13.0-16.5); Lymphocyte # 3.04 X10^3/ul (4.0); Lymphocyte % 25.4 % (19-41); Mean Corp Hgb Conc 33.5 g/dL (32-36); Mean Corpuscular Hgb 28.8 pg (27.0-32.0); Mean Platelet Vol. 9.8 fl (6.2-12.0); Monocyte% 7.5 % (0-10); NRBC Flagged by Analyzer 0 % (0-5); Neutrophil # 7.51 X10^3/uL (2.7-7.7); Neutrophil % 62.7 % (47-70); Platelet Count 288 K/mm3 (150-450); RBC Distribution Width CV 13.9 % (11.6-14.6); RBC Distribution Width SD 43.2 fl (35.1-43.9); Red Blood Count 5.41 M/mm3 (4.6-6.2)
[2020-01-26] MEDS: 0.9% Normal Saline 1,000 ML 150 ML IV (11:32)
[2020-01-26] MEDS: MethylPREDNISolone 125 MG/2 ML Vial IV (11:32)
[2020-01-26] MEDS: Ipratropium/Albuterol Sulfate 3 ML AMPUL.NEB INHALATION (11:33)
[2020-01-26 11:35] VITALS: PULSE 88; RESP 24
[2020-01-26 11:47] LABS: Anion Gap 7 (5-15); BUN 18 mg/dL (7-18); BUN/Creat Ratio 14.2 RATIO (10-20); Calcium,Total 9.1 mg/dL (8.5-10.1); Chloride 104 mmol/L (98-107); Creatinine, Serum 1.27 mg/dL (0.70-1.30); EST Glomerular Filtration Rate 62 mL/min (>60); Est Glom Filt Rate - Afr Amer 75 mL/min (>60); Glucose 174 mg/dL (74-106); Potassium 4.3 mmol/L (3.5-5.1); Sodium Level 136 mmol/L (136-145)
[2020-01-26 11:51] LABS: BNP,B-Type NATRIURETIC PEPTIDE 14.5 pg/mL (0-100)
[2020-01-26 12:37] VITALS: BP 125/67; PULSE 78; RESP 16; O2SAT 93
== END 2020-01-26 12:40 | disposition home or self-care (01) ==
LOC: ED 12:03
PROVIDERS: Emergency Provider Emergency Medicine; PCP Student in an Organized Health Care Education/Training Program
DX: J20.9 Acute bronchitis, unspecified (principal); J44.0 Chronic obstructive pulmonary disease with (acute) lower respiratory infection; I10 Essential (primary) hypertension; Z82.49 Family history of ischemic heart disease and other diseases of the circulatory system; Z88.5 Allergy status to narcotic agent; F17.200 Nicotine dependence, unspecified, uncomplicated
CPT/HCPCS: 71045; 80048; 83880; 84484; 85025; 93005; 94640; 96361; 96374; 99285; J7030; A4216

== ENCOUNTER 2020-03-02 14:19 | Emergency (ER) ==
[2020-03-02 14:20] VITALS: RESP 22; TEMP 36.6
--- NOTE | 2020-03-02 14:30 | CT_ITS ---
STUDY: CT ABDOMEN AND PELVIS WITHOUT CONTRAST REASON FOR EXAM: Male, 54 years old. ABD PAIN ONGOING PAST 2 WEEKS, NAUSEA. H/O DIVERTICULITIS RADIATION DOSAGE (If Supplied By Facility): CTDIvol = ( 17.075 ) mGy, DLP = ( 1352.058 ) mGycm TECHNIQUE: Transaxial images were obtained from the dome of the diaphragm to the symphysis pubis without oral contrast, and without intravenous contrast. Sagittal and coronal images were reconstructed. Individualized dose optimization techniques were used for this CT. COMPARISON: Comparison is made with prior examination dated 05/29/2019. FINDINGS: The visualized lung bases are unremarkable. The visualized portions of the heart are within normal limits. There is decreased attenuation of the liver consistent with steatosis. Normal gallbladder and extrahepatic biliary system. Normal spleen. Normal pancreas. Normal bilateral adrenal glands. Normal right kidney. Normal left kidney. There is a small hiatal hernia. Normal small intestine. There are scattered colonic diverticula consistent with diverticulosis. The appendix is visualized and appears normal. There is scattered atherosclerotic calcification of the abdominal aorta, without a demonstrated aneurysm. Normal inferior vena cava. There is borderline retroperitoneal lymphadenopathy with enlarged nodes no greater than 10mm in the short axis diameter. Diffuse bladder wall thickening although the bladder is not completely distended. Normal abdominal wall. There are degenerative changes of the visualized lumbar spine. CT/Abdomen/Pelvis W IV Cont ONLY IMPRESSION: Fatty infiltration of the liver. Scattered sigmoid diverticula. Diffuse bladder wall thickening although the bladder is not completely distended at this time. Electronically Signed: Jorje Monroy, at 15:46 EDT , Service support ,
--- NOTE | 2020-03-02 14:32 | ED.VIS.GEN ---
History of Present Illness Chief Complaint: Abd Pain Informant: Patient Onset: Weeks Context: Gradual Onset Timing: Intermittent Current Severity: Moderate Maximum Severity: Severe Narrative: The patient is a 54-year-old male medical history significant for hypertension and smoking along with prior surgery for hernia repair and diverticulitis the presents to the emergency department abdominal pain. Patient states he has been having it intermittently for the past 2 weeks, but over the past 2 days is gotten more constant and frequent. He states initially, she would eat it would seem to make the pain go away. He states over the past 2 days, every time he eats he gets full rather quickly. He also feels bloated. He did have an episode of loose stool, but denies any significant diarrhea or bright red blood per rectum. He states he has had issues with my stomach in the past before. He did see his primary care today. She referred him to the emergency department for further evaluation. He denies any fever or chills. He denies any recent travel. He denies any urinary symptoms. Prior similar symptoms: Yes Recent Illness/Hospitalization: No Past Medical History - Allergies and Home Meds Allergies/Adverse Reactions: Allergies hydrocodone bitartrate [From Vicodin] Adverse Reaction (Verified 03/02/20 14:24) Nausea Primary Care Physician: Lalo Weiner DO [Primary Care Provider] - Prior records reviewed: Yes Past Medical History: - - Hypertension, hyperlipidemia Surgical History: noncontributory, - - right calcaneal fracture repair, discectomy lumbar, left retinal surgery Smoking Status: Current every day smoker - Family History Maternal Family History: Family History (Last Reviewed 08/13/19 @ 14:[address] Dajuan Ovalle MD) Father Heart disease Hypertension Myocardial infarction, Onset Age: 50 CAD (coronary artery disease) Mother Hypertension CVA (cerebral vascular accident) Grandfather Myocardial infarction, Onset Age: 50 CAD (coronary artery disease) Family History: Reports: Hypertension, Stroke Paternal Family History: Family History (Last Reviewed 08/13/19 @ 14:[address] Dajuan Ovalle MD) Father Heart disease Hypertension Myocardial infarction, Onset Age: 50 CAD (coronary artery disease) Mother Hypertension CVA (cerebral vascular accident) Grandfather Myocardial infarction, Onset Age: 50 CAD (coronary artery disease) Family History: Reports: Heart Disease, Hypertension Review of Systems General: Denies: Chills, Fever, Sweats Eyes: Denies: Visual changes - bilaterally, Diplopia ENT: Denies: Rhinorrhea, Sore throat Cardiovascular: Denies: Chest pain, Palpitations Respiratory: Denies: Dyspnea, Cough, Dyspnea on exertion Gastrointestinal: Reports: Abdominal pain, Nausea. Denies: Vomiting, Diarrhea, Melena, Hematochezia Genitourinary: Denies: Dysuria, Hematuria, Frequency Musculoskeletal: Denies: Back pain, Extremity Pain Skin: Denies: Rash, Wounds Neurological: Denies: Headache, Weakness, Numbness Physical Exam Vital Signs/Narrative: Vital Signs Temp Pulse Resp BP Pulse Ox 03/02/20 14:20 97.9 F 102 H 22 H 127/78 H 98 Inital Vital Signs reviewed: Yes General: Well nourished, Well developed, No Acute Distress Head: Normocephalic, Atraumatic Eyes: Perrl, EOMI ENT: Moist mucous membranes, No rhinorrhea Neck: Supple, Nontender Cardiovascular: Regular rate, Regular rhythm, No murmurs Respiratory: No distress, CTA bilaterally, Chest nontender Abdomen: Soft, Nondistended, Normal bowel sounds, Tender. Negative for: Guarding, Rebound tenderness Back: Nontender, Normal Inspection Extremities: Nontender, No edema Skin: Normal color, No rash Neurological: Alert, Oriented x3, Cranial nerves II-XII grossly intact, Normal Strength, Normal Sensation Psychological: Normal affect, Normal Mood Diagnostic/Tx/Re-eval Clinical Impression(s) from Imaging Studies Abdomen/Pelvis CT 03/02/20 14:30 IMPRESSION: Fatty infiltration of the liver. Scattered sigmoid diverticula. Diffuse bladder wall thickening although the bladder is not completely distended at this time. Electronically Signed: Jorje Monroy, at 15:46 EDT , Service support , Abnormal Lab Results 03/02/20 03/02/20 03/02/20 14:45 14:45 15:25 WBC 11.1 H RBC 5.48 Hgb 15.4 Hct 47.1 MCV 85.9 MCH 28.1 MCHC 32.7 RDW Std Deviation 43.9 RDW Coeff of [place] 14.0 Plt Count 286 MPV 9.8 Immature Gran % (Auto) 0.400 Neut % (Auto) 65.3 Lymph % (Auto) 23.7 [place] % (Auto) 7.3 Eos % (Auto) 2.8 Baso % (Auto) 0.5 Absolute Neuts (auto) 7.2 Absolute Lymphs (auto) 2.62 Nucleated RBC % 0 Sodium 138 Potassium 4.2 Chloride 108 H Carbon Dioxide 23.0 Anion Gap 7 BUN 17 Creatinine 1.30 Estim Creat Clear Calc 71.71 Est GFR (MDRD) Af Amer 73 Est GFR (MDRD) Non-Af 61 BUN/Creatinine Ratio 13.1 Glucose 124 H Calcium 9.3 Total Bilirubin 0.50 AST 24 ALT 48 Alkaline Phosphatase 106 Total Protein 7.6 Albumin 3.5 Globulin 4.1 Albumin/Globulin Ratio 0.9 Lipase 278 Urine Color Yellow Urine Clarity Sl. Cloudy Urine pH 6.0 Ur Specific [place] 1.015 Urine Protein 100 H Urine Glucose (UA) Normal Urine Ketones Negative Urine Occult Blood Negative Urine Nitrite Negative Urine Bilirubin Negative Urine Urobilinogen Normal Ur Leukocyte Esterase 25 H Urine RBC 0 SEEN Urine WBC 0-5 SEEN Ur Squamous Epith Cells 0-5 SEEN Urine Bacteria 0 SEEN Urine Mucus 0 SEEN - Medical Decision Making The patient presents with 2 weeks of intermittent abdominal pain that has now become more constant. He is not had fever. Is not had vomiting. He was initially relieved by food but now is been more persistent. Metabolic work-up was pursued. Patient has minimal leukocytosis. Otherwise labs are unremarkable. His pain was addressed and he was feeling improved. Patient underwent CT which shows no evidence of dangerous intra-abdominal process. At this point, I do not have a definitive answer for the cause of his pain. However with the chronicity of his symptoms, recurrence, and similar history I do feel that he is safe for outpatient follow-up. I am going to treat him with antispasmodics and Pepcid. He will follow-up with his primary care for reevaluation or return with any worsening symptoms. Impression 1. Diffuse abdominal pain ED Disposition - Plan for ED Patient: Instructions: ED Unknown Causes of Abdominal Pain Male Prescriptions: Dicyclomine HCl [Bentyl] 20 mg PO TIDAC #20 cap Prescription Printed Famotidine [Pepcid] 20 mg PO BID #28 tab Prescription Printed Referrals: Lalo Weiner DO [Primary Care Provider] -
[2020-03-02] MEDS: Morphine 4 MG/ML Syringe IV ×2 (14:44→15:35)
[2020-03-02] MEDS: Ondansetron 4 MG/2 ML Vial IV (14:44)
[2020-03-02] MEDS: 0.9% Normal Saline 1,000 ML 1000 ML IV (14:45)
[2020-03-02 14:55] LABS: Absolute Lymphocyte Count 2.62 X10^3/uL (0.83-4.51); Absolute Neutrophil Count 7.2 X10^3/uL (2.0-7.7); Basophil# 0.05 X10^3/uL; Basophil% 0.5 % (0-1); Eosinophil# 0.31 X10^3/uL; Eosinophils% 2.8 % (0-5); Hematocrit 47.1 % (40-54); Hemoglobin 15.4 g/dL (13.0-16.5); Lymphocyte # 2.62 X10^3/ul (4.0); Lymphocyte % 23.7 % (19-41); Mean Corp Hgb Conc 32.7 g/dL (32-36); Mean Corpuscular Hgb 28.1 pg (27.0-32.0); Mean Corpuscular Volume 85.9 fL (80-94); Mean Platelet Vol. 9.8 fl (6.2-12.0); Monocyte# 0.81 X10^3/uL; Monocyte% 7.3 % (0-10); NRBC Flagged by Analyzer 0 % (0-5); Neutrophil # 7.22 X10^3/uL (2.7-7.7); Neutrophil % 65.3 % (47-70); Platelet Count 286 K/mm3 (150-450); RBC Distribution Width SD 43.9 fl (35.1-43.9); Red Blood Count 5.48 M/mm3 (4.6-6.2); White Blood Count 11.1 K/mm3 (4.4-11.0)
[2020-03-02 15:18] LABS: ALB/GLOB Ratio 0.9 RATIO (0.9-2.4); AST(SGOT) 24 U/L (15-37); Alanine Aminotransfer ALT/SGPT 48 U/L (16-61); Albumin, Serum 3.5 g/dL (3.2-5.0); Alkaline Phosphatase 106 U/L (45-117); Anion Gap 7 (5-15); BUN 17 mg/dL (7-18); BUN/Creat Ratio 13.1 RATIO (10-20); Calcium,Total 9.3 mg/dL (8.5-10.1); Chloride 108 mmol/L (98-107); EST Glomerular Filtration Rate 61 mL/min (>60); Est Glom Filt Rate - Afr Amer 73 mL/min (>60); Estimated Creatinine Clearance 71.71 ml/min; Globulin 4.1 g/dL (2.2-4.2); Glucose 124 mg/dL (74-106); Lipase 278 U/L (73-393); Potassium 4.2 mmol/L (3.5-5.1); Protein, Total 7.6 g/dL (6.4-8.2); Sodium Level 138 mmol/L (136-145)
[2020-03-02 15:27] LABS: Bacteria 0 SEEN /hpf (None Seen); Mucous, Urine 0 SEEN /hpf (<or=2+); Red Blood Cells-Urine 0 SEEN /hpf (0-5)
[2020-03-02 15:29] LABS: Color, Urine Yellow (Yellow); Glucose, Dipstick Normal (Normal); Ketone-Dipstick Negative (Negative); Leukocyte Esterase-Dipstick 25 /ul (Negative); Nitrite-Dipstick Negative (Negative); Occult Blood-Urine Negative /ul (Negative); Protein-Dipstick 100 mg/dl (Negative); Specific Gravity, Urine 1.015 (1.002-1.030); Urine Bilirubin Dipstick Negative (Negative); Urine Clarity Sl. Cloudy (Clear); Urine Urobilinogen Normal (Normal)
[2020-03-02 15:39] LABS: Squamous Epithelial Cells - UA 0-5 SEEN /hpf (0-5); White Blood Cells 0-5 SEEN /hpf (0-5)
[2020-03-02] MEDS: Mag Hydrox/Al Hydrox/Simeth 30 ML UDC PO (16:07)
[2020-03-02 16:09] VITALS: BP 158/97; PULSE 90; RESP 18; O2SAT 99
== END 2020-03-02 16:10 | disposition home or self-care (01) ==
LOC: ED 14:51
PROVIDERS: Emergency Provider Emergency Medicine; PCP Student in an Organized Health Care Education/Training Program
DX: R10.9 Unspecified abdominal pain (principal); I10 Essential (primary) hypertension; F17.200 Nicotine dependence, unspecified, uncomplicated; E78.5 Hyperlipidemia, unspecified; Z79.899 Other long term (current) drug therapy; Z79.84 Long term (current) use of oral hypoglycemic drugs
CPT/HCPCS: 74177; 80053; 81001; 83690; 85025; 99281; 99285; J7030; Q9967; A4216; J2405

== ENCOUNTER 2020-08-20 16:33 | Emergency (ER) | payer MEDICARE, SELFPAY ==
[2020-04-19 15:23] VITALS: BMI 42.0
[2020-08-20 16:34] VITALS: BP 121/94; PULSE 94; RESP 18; TEMP 35.9; O2SAT 98; BMI 42.7
--- NOTE | 2020-08-20 16:48 | ED.DCSUM_ITS ---
History of Present Illness Chief Complaint: Abd Pain Informant: Patient Narrative: 54-year-old male presenting with left lower quadrant abdominal pain. He states that he does have some chronic abdominal pain which feels more irritated. He states that this is different and feels like he has diverticulitis from the past. He states that he chronically has some pain and nausea every day. He states he had upper endoscopy and lower endoscopy and was found to have polyps but no source of his pain and nausea. Patient does admit to eating some sesame seeds the other day but has not had any other irritants. He denies urinary complaints. He is not had a fever. Past Medical History - Allergies and Home Meds Allergies/Adverse Reactions: Allergies hydrocodone bitartrate [From Vicodin] Adverse Reaction (Verified 08/20/20 16:37) Nausea Primary Care Physician: Lalo Weiner DO [Primary Care Provider] - Past Medical History: - - Hypertension, hyperlipidemia, diverticulitis, diabetes type 2, COPD, chronic abdominal pain Surgical History: noncontributory, - - right calcaneal fracture repair, discectomy lumbar, left retinal surgery Lives: Alone Smoking Status: Current every day smoker Alcohol: None Drugs: None - Family History Maternal Family History: Family History (Last Reviewed 04/19/20 @ 15:44 by Shon Monique CHILD DEVELOPMENT DIRECTOR, CHILD DEVELOPMENT DIRECTOR-C) Father Heart disease Hypertension Myocardial infarction, Onset Age: 50 CAD (coronary artery disease) Mother Hypertension CVA (cerebral vascular accident) Grandfather Myocardial infarction, Onset Age: 50 CAD (coronary artery disease) Family History: Reports: Hypertension, Stroke Paternal Family History: Family History (Last Reviewed 04/19/20 @ 15:44 by Shon Monique NP, CHILD DEVELOPMENT DIRECTOR-C) Father Heart disease Hypertension Myocardial infarction, Onset Age: 50 CAD (coronary artery disease) Mother Hypertension CVA (cerebral vascular accident) Grandfather Myocardial infarction, Onset Age: 50 CAD (coronary artery disease) Family History: Reports: Heart Disease, Hypertension Review of Systems General: Denies: Chills, Fever, Sweats Eyes: Denies: Visual changes - bilaterally, Diplopia ENT: Denies: Rhinorrhea, Sore throat Cardiovascular: Denies: Chest pain, Palpitations Respiratory: Denies: Dyspnea, Cough, Dyspnea on exertion Gastrointestinal: Reports: Abdominal pain, Nausea. Denies: Diarrhea, Constipation Genitourinary: Denies: Dysuria, Hematuria, Frequency Musculoskeletal: Denies: Back pain, Extremity Pain Skin: Denies: Rash, Wounds Neurological: Denies: Headache, Weakness, Numbness Psych: Denies: Depression, Anxiety, Suicidal thoughts, Suicidal ideations, -, - Physical Exam Vital Signs/Narrative: Vital Signs Temp Pulse Resp BP Pulse Ox 08/20/20 16:34 96.7 F L 94 18 121/94 H 98 Inital Vital Signs reviewed: Yes General: Well nourished, No Acute Distress Head: Normocephalic, Atraumatic Eyes: Perrl, EOMI ENT: Moist mucous membranes, No rhinorrhea Cardiovascular: Regular rate, Regular rhythm Respiratory: No distress, CTA bilaterally Abdomen: Soft, Nondistended, Tender - Tenderness palpation left lower quadrant. Skin: Normal color, No rash. Negative for: Cyanosis, Diaphoresis Neurological: Alert, Oriented x3, Cranial nerves II-XII grossly intact Psychological: Normal affect, Normal Mood Diagnostic/Tx/Re-eval Clinical Impression(s) from Imaging Studies Abdomen/Pelvis CT 08/20/20 16:52 IMPRESSION: No acute abnormalities in the abdomen or pelvis. Diverticulosis. Electronically Signed: Carlos Llanes MD at 19:00 EDT Tel , Service support , Laboratory Data 08/20/20 08/20/20 08/20/20 17:10 17:10 17:30 WBC 9.8 RBC 5.35 Hgb 15.1 Hct 45.8 MCV 85.6 MCH 28.2 MCHC 33.0 RDW Std Deviation 44.9 H RDW Coeff of [place] 14.4 Plt Count 270 MPV 9.4 Immature Gran % (Auto) 0.300 Neut % (Auto) 64.8 Lymph % (Auto) 24.3 [place] % (Auto) 6.6 Eos % (Auto) 3.5 Baso % (Auto) 0.5 Absolute Neuts (auto) 6.4 Absolute Lymphs (auto) 2.39 Nucleated RBC % 0 Sodium 138 Potassium 4.0 Chloride 103 Carbon Dioxide 28.0 Anion Gap 7 BUN 18 Creatinine 1.14 Estim Creat Clear Calc 81.77 Est GFR (MDRD) Af Amer 85 Est GFR (MDRD) Non-Af 70 BUN/Creatinine Ratio 15.8 Glucose 132 H Calcium 9.2 Total Bilirubin 0.70 AST 17 ALT 38 Alkaline Phosphatase 107 Total Protein 7.5 Albumin 3.4 Globulin 4.1 Albumin/Globulin Ratio 0.8 L Urine Color Yellow Urine Clarity Clear Urine pH 7.0 Ur Specific [place] 1.010 Urine Protein 30 H Urine Glucose (UA) Normal Urine Ketones Negative Urine Occult Blood Negative Urine Nitrite Negative Urine Bilirubin Negative Urine Urobilinogen 1 H Ur Leukocyte Esterase Negative - Medical Decision Making 54-year-old male presenting with left lower quadrant pain and had concern for diverticulitis. His blood work is unremarkable. Urinalysis is negative. Patient had CT abdomen pelvis with IV and p.o. contrast which is normal as interpreted by radiologist. Patient does state that he has been having trouble having bowel movements for the past few days and states that he has been only having bowel movements every 4 days for the last few weeks. He has a scheduled appointment with a GI doctor upcoming. He believes this is on the . Patient counseled on return precautions but at this time I feel he is stable to be discharged home given his negative work-up. Impression: 1. Left lower quadrant pain ED Disposition - Plan for ED Patient: Disposition: Home or Assisted Living Instructions: ED Unknown Causes of Abdominal ... Referrals: Lalo Weiner DO [Primary Care Provider] -
--- NOTE | 2020-08-20 16:52 | CT_ITS ---
INDICATION: LLQ pain EXAMINATION: CT Abdomen And Pelvis W/ Contrast Injection TECHNIQUE: Helically acquired images were obtained of the abdomen and pelvis after IV contrast. A radiation dose optimization technique was used for this scan. IV Contrast dosage and agent: 100 cc [id number] Oral contrast: Yes. COMPARISON: 03/02/2020. FINDINGS: Visualized lung bases: Unremarkable Liver: Unremarkable Gallbladder: Unremarkable Spleen: Unremarkable Pancreas: Unremarkable Adrenal Glands: Unremarkable Kidneys: Scattered too small to characterize subcentimeter hypodensities bilaterally. GI Tract: Scattered diverticula throughout the colon without evidence of inflammation. Vasculature: Mild scattered aortoiliac atherosclerotic calcifications. Lymphadenopathy: None Peritoneum: No ascites. Bladder: Unremarkable Reproductive organs: Unremarkable Bones/Soft tissues: Mild scattered degenerative changes of the visualized spine. CT/Abdomen/Pelvis WITH Contrast IMPRESSION: No acute abnormalities in the abdomen or pelvis. Diverticulosis. Electronically Signed: Carlos Llanes MD at 19:00 EDT Tel , Service support ,
[2020-08-20] MEDS: Ondansetron 4 MG/2 ML Vial IV (17:15)
[2020-08-20] MEDS: Morphine 4 MG/ML Syringe IV (17:16)
[2020-08-20 17:21] LABS: Absolute Lymphocyte Count 2.39 X10^3/uL (0.83-4.51); Absolute Neutrophil Count 6.4 X10^3/uL (2.0-7.7); Basophil# 0.05 X10^3/uL; Basophil% 0.5 % (0-1); Eosinophil# 0.34 X10^3/uL; Eosinophils% 3.5 % (0-5); Hematocrit 45.8 % (40-54); Hemoglobin 15.1 g/dL (13.0-16.5); Lymphocyte # 2.39 X10^3/ul (4.0); Lymphocyte % 24.3 % (19-41); Mean Corpuscular Hgb 28.2 pg (27.0-32.0); Mean Corpuscular Volume 85.6 fL (80-94); Mean Platelet Vol. 9.4 fl (6.2-12.0); Monocyte# 0.65 X10^3/uL; Monocyte% 6.6 % (0-10); NRBC Flagged by Analyzer 0 % (0-5); Neutrophil # 6.36 X10^3/uL (2.7-7.7); Neutrophil % 64.8 % (47-70); Platelet Count 270 K/mm3 (150-450); RBC Distribution Width CV 14.4 % (11.6-14.6); RBC Distribution Width SD 44.9 fl (35.1-43.9); Red Blood Count 5.35 M/mm3 (4.6-6.2); White Blood Count 9.8 K/mm3 (4.4-11.0)
[2020-08-20 17:38] LABS: Color, Urine Yellow (Yellow); Glucose, Dipstick Normal (Normal); Ketone-Dipstick Negative (Negative); Leukocyte Esterase-Dipstick Negative /ul (Negative); Nitrite-Dipstick Negative (Negative); Occult Blood-Urine Negative /ul (Negative); Protein-Dipstick 30 mg/dl (Negative); Urine Bilirubin Dipstick Negative (Negative); Urine Clarity Clear (Clear); Urine Urobilinogen 1 mg/dl (Normal)
[2020-08-20 17:38] LABS: ALB/GLOB Ratio 0.8 RATIO (0.9-2.4); AST(SGOT) 17 U/L (15-37); Alanine Aminotransfer ALT/SGPT 38 U/L (16-61); Albumin, Serum 3.4 g/dL (3.2-5.0); Alkaline Phosphatase 107 U/L (45-117); Anion Gap 7 (5-15); BUN 18 mg/dL (7-18); BUN/Creat Ratio 15.8 RATIO (10-20); Calcium,Total 9.2 mg/dL (8.5-10.1); Chloride 103 mmol/L (98-107); Creatinine, Serum 1.14 mg/dL (0.70-1.30); EST Glomerular Filtration Rate 70 mL/min (>60); Est Glom Filt Rate - Afr Amer 85 mL/min (>60); Estimated Creatinine Clearance 81.77 ml/min; Globulin 4.1 g/dL (2.2-4.2); Glucose 132 mg/dL (74-106); Protein, Total 7.5 g/dL (6.4-8.2); Sodium Level 138 mmol/L (136-145)
[2020-08-20 19:32] VITALS: BP 139/66; PULSE 88; RESP 17; O2SAT 98
== END 2020-08-20 19:33 | disposition home or self-care (01) ==
PROVIDERS: Emergency Provider Student in an Organized Health Care Education/Training Program; PCP Student in an Organized Health Care Education/Training Program
DX: R10.32 Left lower quadrant pain (principal); K57.90 Diverticulosis of intestine, part unspecified, without perforation or abscess without bleeding; I10 Essential (primary) hypertension; E11.9 Type 2 diabetes mellitus without complications; E78.5 Hyperlipidemia, unspecified; J44.9 Chronic obstructive pulmonary disease, unspecified; F17.200 Nicotine dependence, unspecified, uncomplicated; G89.29 Other chronic pain; Z82.49 Family history of ischemic heart disease and other diseases of the circulatory system; Z88.5 Allergy status to narcotic agent
CPT/HCPCS: 74177; 80053; 81002; 85025; 99283; Q9967; A4216; J2405

== ENCOUNTER 2021-05-27 18:48 | Emergency (ER) | payer MEDICARE, SELFPAY ==
[2021-05-27 18:50] VITALS: BP 127/87; PULSE 105; RESP 20; TEMP 36.7; O2SAT 95; BMI 42.5
--- NOTE | 2021-05-27 19:05 | EX.ED.DYSGE1 ---
HPI History of Present Illness Chief Complaint: Fall Informant: patient Narrative Narrative: 55-year-old male states about 3 and half weeks ago he sustained a fall in which he landed on his left posterior hip. In the process he states he injured the right shoulder but is unsure how. He was hoping his shoulder get better but it continues to hurt. He notes limited range of motion mostly with abduction above 90 degrees. He states that the elbow and the hand feel fine. He states that he feels pain in the anterior aspect near his biceps tendon and posteriorly the supraspinatus region. PFSH PFSH Medical History Atherosclerosis of coronary artery without angina pectoris Chronic back pain COPD (chronic obstructive pulmonary disease) Diabetes mellitus, type II Diverticulitis Essential (primary) hypertension Hyperlipidemia Mild cognitive impairment Morbid obesity Pancolitis Tobacco use Home Medications atorvastatin 40 mg PO QHS 04/26/18 [History Last Taken 08/04/19] dulaglutide 1.5 mg SQ QWEEK 11/29/19 [History Last Taken Unknown] metformin 1,000 mg PO BID 11/29/19 [History Last Taken Unknown] albuterol sulfate 2 puff INHALATION Q4H PRN PRN #1 inhaler 01/26/20 [Rx Last Taken Unknown] aspirin 81 mg tablet,delayed release 81 mg PO QDAY #90 tab 04/19/20 [Rx Last Taken Unknown] lisinopril-hydrochlorothiazide 1 tablet PO DAILY 08/20/20 [History Last Taken Unknown] isosorbide mononitrate 30 mg tablet,extended release 24 hr 30 mg PO DAILY #90 tab 02/19/21 [Rx Last Taken Unknown] amitriptyline 25 mg PO DAILY 05/27/21 [History Last Taken Unknown] cyclobenzaprine 10 mg PO TID PRN #15 tablet 05/27/21 [Rx Last Taken Unknown] oxycodone-acetaminophen 1 tab PO Q6H PRN PRN 3 Days #12 tablet 05/27/21 [Rx Last Taken Unknown] Allergy/AdvReac Type Severity Reaction Status Date / Time hydrocodone bitartrate AdvReac Nausea Verified 05/27/21 18:49 [From Vicodin] Family History Father Heart disease Hypertension Myocardial infarction, Onset Age: 50 CAD (coronary artery disease) CABG Mother Hypertension CVA (cerebral vascular accident) Grandfather Myocardial infarction, Onset Age: 50 CAD (coronary artery disease) CABG Surgical History H/O foot surgery History of back surgery History of eye surgery History of left heart catheterization (08/16/19) Social History Smoking Status: Current every day smoker tobacco type: cigarettes ROS ROS ED Constitutional Constitutional ED: Denies chills, fever(s) or weight loss Eyes Eyes: Denies change in vision or diplopia ENT ENT ED: Denies ear pain, rhinorrhea or sore throat Cardiovascular Cardiovascular: Denies chest pain, orthopnea, palpitations or racing heartbeat Respiratory/Chest Respiratory/Chest: Denies cough, dyspnea or orthopnea Gastrointestinal Gastrointestinal: Denies abdominal pain, diarrhea, nausea or vomiting Genitourinary Genitourinary ED: Denies dysuria, hematuria or urinary frequency Musculoskeletal Musculoskeletal: Reports other Details: History of present illness ; Denies arthralgias or myalgias Integumentary Denies abscess or rash Neurologic Neurologic: Denies headache(s) or weakness Psychiatric Psychiatric: Denies anxiety, depression, suicidal ideation or suicidal thoughts Endocrine Endocrinology: Denies polydipsia, polyphagia or polyuria Allergic/Immunologic Allergic/Immunologic ED: Denies mouth swelling, tongue swelling or urticaria EXAM Physical Exam Const Vital Signs: 05/27/21 18:50 Temperature 98.0 F Temperature Source Temporal Pulse Rate 105 H Respiratory Rate 20 H Blood Pressure 127/87 H Blood Pressure Mean 100 Pulse Ox 95 Oxygen Delivery Method Room Air Positive well nourished, well developed and obese General Appearance ED: well developed Nutritional Appearance: obese HEENT Reports normocephalic, head/scalp atraumatic, TM's clear and moist mucous membranes Negative for trauma Tympanic Membrane ED: Yes TM's clear Eyes PERRL and EOMs intact bilaterally Neck no lymphadenopathy, supple and no JVD Resp normal respiratory effort and clear to auscultation bilaterally Cardio regular rate, regular rhythm and no murmurs GI normal to inspection, nondistended, normoactive bowel sounds and non-tender Palpation: soft Back/Spine no CVA tenderness and normal ROM Extremity Extremity Narrative: Tender to palpation along the supraspinatus musculature. He has some mild tenderness in the AC joint space. Mild tenderness along the anterior biceps tendons. Limited range of motion above 90 degrees of abduction due to pain. Positive empty beer can test. Neurovascularly intact distally. General Extremety ED: Negative for edema General Extremity: Negative for edema Neuro oriented x3 and CN's II-XII intact bilaterally Sensorium / Orientation: alert Motor Exam: strength 5/5 throughout Psych mental status grossly normal Mood & Affect: Negative for depressed or tearful Skin no rashes or lesions noted and no wounds MDM MDM MDM Narrative Medical decision making narrative: My interpretation of the plain films of the right shoulder is no acute fracture. Clinically I am concerned about a supraspinatus tear. I can write for some pain medication and muscle relaxants. He is to follow-up with orthopedics. He states he has seen a local orthopedist in the past and would like to try a different one. Dr. Gastelum is on-call tonight. Discharge Plan Triage Chief Complaint: Fall Other Complaint: Bite ED Provider: Ronaldo Delatorre Dx/Rx/DC Orders Clinical Impression: Acute pain of right shoulder Instructions: ED Rotator Cuff Tear Prescriptions: New oxycodone-acetaminophen [oxycodone-acetaminophen] 1 TABLET tablet 1 tab PO Q6H PRN PRN (Reason: Pain) 3 Days Qty: 12 RF: 0 cyclobenzaprine [cyclobenzaprine] 10 MG tablet 10 mg PO TID PRN (Reason: Muscle Spasm) Qty: 15 RF: 0 No Action aspirin [Adult Aspirin Regimen] 81 mg tablet,delayed release (DR/EC) 81 mg PO QDAY Qty: 90 RF: 3 atorvastatin 40 MG tablet 40 mg PO QHS RF: 0 metformin 1,000 MG tablet 1,000 mg PO BID RF: 0 dulaglutide 1.5 MG/0.5 ML pen injector 1.5 mg SQ QWEEK RF: 0 albuterol sulfate 1 INHALER inhaler 2 puff inhalation Q4H PRN PRN (Reason: Wheezing) Qty: 1 RF: 0 lisinopril-hydrochlorothiazide 1 EACH tablet 1 tablet PO DAILY RF: 0 amitriptyline 25 mg Tablet 25 mg PO DAILY RF: 0 isosorbide mononitrate 30 mg tablet extended release 24 hr 30 mg PO DAILY Qty: 90 RF: 3 Primary Care Provider: Lalo Weiner Referrals: Narayan Gastelum DO [STAFF PHYSICIAN] - As soon as possible (For orthopedics) Lalo Weiner DO [Primary Care Provider] - Activity Restrictions/Additional Instructions: I have concerns you may have sustained a rotator cuff tear. Please follow-up either with your primary care physician or with orthopedics. Disposition Disposition: Home, Self Care
[2021-05-27] MEDS: Ketorolac 60 MG/2 ML Vial IM (19:11)
--- NOTE | 2021-05-27 19:11 | RAD_ITS ---
STUDY: X-RAY - RIGHT SHOULDER REASON FOR EXAM: Male, 55 years old. Injury TECHNIQUE: 2 view(s) of the shoulder. COMPARISON: None. FINDINGS: Normal glenohumeral articulation. Hypertrophy of the acromioclavicular joint. Normal acromion. Normal humeral head and visualized proximal humerus. The soft tissue structures are unremarkable. Normal visualized pulmonary apex. RAD/Shoulder min 2 Views IMPRESSION: Degenerative changes of the shoulder. Electronically Signed: Jasper Cabezas DO at 21:37 EST Tel [phone], Service support ,
== END 2021-05-27 21:34 | disposition home or self-care (01) ==
PROVIDERS: Emergency Provider Emergency Medicine; PCP Student in an Organized Health Care Education/Training Program; Visit Provider Emergency Medicine
DX: M25.511 Pain in right shoulder (principal); J44.9 Chronic obstructive pulmonary disease, unspecified; E66.01 Morbid (severe) obesity due to excess calories; Z68.41 Body mass index [BMI] 40.0-44.9, adult; E11.9 Type 2 diabetes mellitus without complications; I25.10 Atherosclerotic heart disease of native coronary artery without angina pectoris; I10 Essential (primary) hypertension; E78.5 Hyperlipidemia, unspecified; F17.210 Nicotine dependence, cigarettes, uncomplicated; Z79.84 Long term (current) use of oral hypoglycemic drugs; Z79.82 Long term (current) use of aspirin; Z79.899 Other long term (current) drug therapy
CPT/HCPCS: 73030; 96372; 99282

== ENCOUNTER 2021-06-08 10:10 | Outpatient (CLI) | payer MEDICARE, SELFPAY ==
--- NOTE | 2021-06-08 10:11 | MRI_ITS ---
STUDY: MRI RIGHT SHOULDER REASON FOR EXAM: Right shoulder pain and decreased range of motion, right shoulder injury 7 weeks ago. TECHNIQUE: Standardized fat and water weighted pulse sequences were obtained in all 3 orthogonal planes. COMPARISON: Radiographs 05/27/2021. FINDINGS: There is supraspinatus tendinosis and a very small superficial partial-thickness tear of the articular surface of the distal supraspinatus tendon (T2 coronal image 14) measuring 0.1 cm in length. There is mild infraspinatus tendinosis and a small intrasubstance partial-thickness tear of the distal infraspinatus tendon (T2 coronal image 9) measuring 0.5 cm in length and a second small intrasubstance partial-thickness tear of the infraspinatus tendon (T2 coronal image 10) measuring 0.6 cm in length. Normal subscapularis tendon. Normal teres minor tendon. Normal supraspinatus muscle. Normal infraspinatus muscle. Normal subscapularis muscle. Normal teres minor muscle. Normal glenohumeral articulation. Normal humeral head and visualized proximal humerus. Normal biceps labral complex. There is mild tendinosis of the intracapsular long biceps tendon (T2 sagittal images 13-15). Normal labrum. Normal capsulo- ligamentous complex. There is acromioclavicular arthrosis with hypertrophic changes abutting the supraspinatus musculotendinous junction (T2 sagittal image 18). There is a Type II morphology (curved), with a neutral orientation. There is no subacromial-subdeltoid bursal fluid. There is thickening of the coracoacromial ligament (T2 sagittal image 13). Normal deltoid muscle. Normal trapezius muscle. MRI/Upper Ext Joint Only(Routine) IMPRESSION: Very small superficial partial-thickness tear and tendinosis of the supraspinatus tendon. Small intrasubstance partial-thickness tears and mild tendinosis of the infraspinatus tendon. Mild tendinosis of the long biceps tendon. Acromioclavicular arthrosis. Thickening of the coracoacromial ligament. Electronically Signed: Des Beach MD at 12:29 EST Tel , Service support ,
== END 2021-06-08 23:59 | disposition short-term general hospital (02) ==
LOC: MRI 10:11
PROVIDERS: PCP Student in an Organized Health Care Education/Training Program; Referring Provider Orthopaedic Surgery; Visit Provider Orthopaedic Surgery
DX: M25.511 Pain in right shoulder (principal); M75.101 Unspecified rotator cuff tear or rupture of right shoulder, not specified as traumatic; M12.811 Other specific arthropathies, not elsewhere classified, right shoulder
CPT/HCPCS: 73221

== ENCOUNTER 2023-01-16 15:37 | Emergency (ER) | payer MEDICARE, SELFPAY ==
[2023-01-16 15:38] VITALS: BP 124/90; PULSE 106; RESP 24; TEMP 36.1; O2SAT 99; BMI 38.9
--- NOTE | 2023-01-16 15:50 | CT_ITS ---
INDICATION: Right flank pain EXAMINATION: CT ABDOMEN AND PELVIS WITHOUT CONTRAST - CT Abdomen And Pelvis W/O Contrast Injection TECHNIQUE: Helically acquired images were obtained of the abdomen and pelvis without oral or IV contrast. A radiation dose optimization technique was used for this scan. IV Contrast dosage and agent: None. Oral contrast: None. COMPARISON: 08/20/2020 FINDINGS: LOWER CHEST: Lung bases are clear. No cardiomegaly or pericardial effusion. LIVER: Diffuse low-attenuation consistent with steatosis. No focal mass. GALLBLADDER AND BILIARY TREE: No calcified gallstones. No gallbladder distension or wall edema. No intra- or extrahepatic biliary ductal dilation. PANCREAS: No focal cystic or solid mass. SPLEEN: Normal size without focal cystic or solid mass. ADRENAL GLANDS: No nodules. KIDNEYS AND URETERS: Normal renal size and position. No hydronephrosis. PERITONEUM: No ascites or free air. BOWEL: Normal appendix. No stomach or bowel distension. No focal inflammatory change. LYMPH NODES: No enlarged mesenteric or retroperitoneal lymph nodes. VESSELS: Aorta is non-dilated. URINARY BLADDER: Unremarkable. REPRODUCTIVE ORGANS: No pelvic masses. ABDOMINAL WALL: No discrete abdominal or pelvic wall hernia. BONES: No acute or aggressive abnormality. CT/Abdomen/Pelvis without Cont IMPRESSION: No acute findings in the abdomen or pelvis. Electronically Signed: Robert Riggs MD at 17:20 EDT ,
--- NOTE | 2023-01-16 15:51 | EDS_ITS ---
HPI <LEV Freire - Last Filed: 01/16/23 17:58> History of Present Illness Chief Complaint: Flank Pain Narrative Narrative: Patient is a 57-year-old male with history of obesity, diabetes who presents to the emergency department 2 days of right flank pain. Patient states today, the pain was unbearable, shooting from the right flank to the right lower quadrant. Patient states he is having difficulty keeping still. He states he has had a weaker stream in the last week. He denies any fever or chills. States he does feel nauseous with no appetite. He does have history of diverticulitis however has never had a specific pain before. PFSH <LEV Freire - Last Filed: 01/16/23 17:58> PFSH Medical History Atherosclerosis of coronary artery without angina pectoris Chronic back pain COPD (chronic obstructive pulmonary disease) Diabetes mellitus, type II Diverticulitis Essential (primary) hypertension Hyperlipidemia Mild cognitive impairment Morbid obesity Pancolitis Tobacco use Home Medications atorvastatin 40 mg tablet 40 mg PO QHS cholesterol 04/26/18 [History Last Taken 08/04/19] metformin 1,000 mg tablet 1,000 mg PO BID 11/29/19 [History Last Taken Unknown] albuterol sulfate 90 mcg/actuation aerosol inhaler 2 puff inhalation Q4H PRN PRN Wheezing ##1 01/26/20 [Rx Last Taken Unknown] aspirin 81 mg tablet,delayed release (Adult Aspirin Regimen) 81 mg PO QDAY #90 tabs 04/19/20 [Rx Last Taken Unknown] lisinopril 20 mg-hydrochlorothiazide 12.5 mg tablet 1 tablet PO DAILY 08/20/20 [History Last Taken Unknown] amitriptyline 25 mg tablet 25 mg PO DAILY 05/27/21 [History Last Taken Unknown] cyclobenzaprine 10 mg tablet 10 mg PO TID PRN Muscle Spasm #15 TABLETS 05/27/21 [Rx Last Taken Unknown] oxycodone-acetaminophen 5 mg-325 mg tablet 1 tab PO Q6H PRN PRN Pain 3 days #12 TABLETS 05/27/21 [Rx Last Taken Unknown] cyclobenzaprine 10 mg tablet 10 mg PO TID PRN muscle spasm #30 tabs 06/01/21 [Rx Last Taken Unknown] etodolac 500 mg tablet 500 mg PO BID #40 tabs 06/01/21 [Rx Last Taken Unknown] isosorbide mononitrate 30 mg tablet,extended release 24 hr 30 mg PO DAILY #90 tabs 03/21/22 [Rx Last Taken Unknown] oxycodone-acetaminophen 5 mg-325 mg tablet (Percocet) 1 tab PO Q8H PRN pain 3 days #10 tabs 01/16/23 [Rx Last Taken Unknown] Allergy/AdvReac Type Severity Reaction Status Date / Time hydrocodone bitartrate AdvReac Nausea Verified 01/16/23 15:37 [From Vicodin] Family History Father Heart disease Hypertension Myocardial infarction, Onset Age: 50 CAD (coronary artery disease) CABG Mother Hypertension CVA (cerebral vascular accident) Grandfather Myocardial infarction, Onset Age: 50 CAD (coronary artery disease) CABG Surgical History H/O foot surgery History of back surgery History of eye surgery History of left heart catheterization (08/16/19) Social History Smoking Status: Current every day smoker tobacco type: cigarettes ROS <LEV Freire - Last Filed: 01/16/23 17:58> ROS ED ROS Narrative Constitutional: Negative for fever, chills, weight loss, weakness Eyes: Negative for vision loss, vision change, double vision ENT: Negative for any sore throat, ear pain, congestion Cardiovascular: Negative for any chest pain, tightness, palpitations Respiratory: Negative for any cough, sputum production, hemoptysis, dyspnea, dyspnea on exertion, orthopnea Gastrointestinal: Negative for any vomiting, diarrhea, constipation, blood in stool, blood in vomit. Positive for right flank pain that radiates to the right abdomen. Nausea : Negative for any urinary frequency, dysuria, retention, blood in urine Muscle skeletal: Negative for any muscle joint pain, stiffness, myalgias, arthralgias, neck pain, back pain Neurological: Negative for any headache, syncope, numbness or tingling, dizziness Skin: Negative for any rashes, lumps, itching, abrasions, lacerations Psychiatric: Negative for any depression, anxiety, stress, suicidal ideation, homicidal ideation Hematologic: Negative for any easy bruising, excessive bruising, easy bleeding Allergies: Negative for any eczema, hives, rash EXAM <LEV Freire - Last Filed: 01/16/23 17:58> Physical Exam Narrative Exam Narrative: Vital signs reviewed. Patient appears to be in mild to moderate distress. HEET: Head normocephalic atraumatic, TMs clear bilaterally. Posterior pharynx is clear, moist mucous membranes. Nares clear bilaterally. Neck: Supple with no lymphadenopathy or tenderness. No signs of meningismus, negative jolt sign. Cardiac: Regular rate and rhythm no murmurs gallops or rubs, equal peripheral pulses bilaterally. Respiratory: Lungs clear to auscultation bilaterally. No chest tenderness. Abdomen: Soft. No abdominal bruit or pulsatile masses. No hepatosplenomegaly. Patient has pain to the right flank area right lower abdomen. No peritoneal signs, no guarding. Extremities: No peripheral edema, no signs of gross trauma or deformity. Active full range of motion of all extremities. Neuro: Cranial nerves II through XII intact, no focal neurological deficits. Skin: Clean dry and intact with no rash, purpura, petechiae, vesicles or pustules. Backs/flank: No CVA tenderness, no midline spinal tenderness, no deformity. Psych: Normal mood and affect. No SI, HI or acute psychosis. Const Vital Signs: 01/16/23 15:38 Temperature 97 F L Temperature Source Temporal Pulse Rate 106 H Respiratory Rate 24 H Blood Pressure 124/90 H Blood Pressure Mean 101 Pulse Ox 99 Positive well nourished and well developed General Appearance ED: well developed <Dr. Britany Morales DO - Last Filed: 01/17/23 01:15> Physical Exam Const Vital Signs: 01/16/23 15:38 Temperature 97 F L Temperature Source Temporal Pulse Rate 106 H Respiratory Rate 24 H Blood Pressure 124/90 H Blood Pressure Mean 101 Pulse Ox [address] [facility] <LEV Freire - Last Filed: 01/16/23 17:58> [facility] Lab Data Labs: Laboratory Results - last 24 hr 01/16/23 01/16/23 15:53 17:48 WBC 11.1 H RBC 5.31 Hgb 15.0 Hct 46.2 MCV 87.0 MCH 28.2 MCHC 32.5 RDW Std Deviation 45.8 H RDW Coeff of Ivory 14.5 Plt Count 270 MPV 10.3 Immature Gran % (Auto) 0.400 Neut % (Auto) 69.8 Lymph % (Auto) 20.3 Sharkey % (Auto) 6.6 Eos % (Auto) 2.3 Baso % (Auto) 0.6 Absolute Neuts (auto) 7.8 H Absolute Lymphs (auto) 2.26 Nucleated RBC % 0 Sodium 135 L Potassium 4.2 Chloride 103 Carbon Dioxide 27.0 Anion Gap 5 BUN 22 H Creatinine 1.54 H Estim Creat Clear Calc 58.37 Est GFR (MDRD) Af Amer 60 Est GFR (MDRD) Non-Af 49 L BUN/Creatinine Ratio 14.3 Glucose 235 H Calcium 9.1 Total Bilirubin 0.60 AST 19 ALT 38 Alkaline Phosphatase 110 Total Protein 7.3 Albumin 3.3 Globulin 4.0 Albumin/Globulin Ratio 0.8 L Lipase 52 Urine Color Yellow Urine Clarity Clear Urine pH 6.5 Ur Specific [place] 1.015 Urine Protein 30 H Urine Glucose (UA) 100 H Urine Ketones 5 H Urine Occult Blood Negative Urine Nitrite Negative Urine Bilirubin 1 H Urine Urobilinogen 4 H Ur Leukocyte Esterase 25 H Urine RBC 0 SEEN Urine WBC 0 SEEN Ur Squamous Epith Cells 0 SEEN Urine Bacteria 0 SEEN Urine Mucus 1+ Radiography Diagnostic Testing: Clinical Impression(s) from Imaging Studies Abdomen/Pelvis CT 01/16/23 15:50 IMPRESSION: No acute findings in the abdomen or pelvis. Electronically Signed: Robert Riggs MD at 17:20 EDT Reading Location ID and State: [facility] / [place] Tel , Service support , Treatment and Re-Evaluation :: Patient appears to be in mild distress secondary to right-sided flank pain. Patient presents emerged part with 2 days of right lower quadrant pain, right flank pain. Patient will receive a full abdominal work-up including a noncontrast CT scan of the abdomen pelvis. Differential diagnosis include diverticulitis, bowel obstruction, appendicitis, obstructing uropathy. Patient be given IV fluids, Toradol Zofran and morphine. On reassessment, the patient was feeling better. Patient's laboratory values show slight leukocytosis white blood count 11.1. Patient's chemistries show slight renal insufficiency with a creatinine 1.5, this is slightly elevated, patient is normally around 1.2-1.3. Patient was given 1 L of fluid. Glucose was slightly elevated 235. Patient's lipase was negative patient CT scan shows no acute findings in the abdomen or pelvis. No evidence of obstructive uropathy, no appendicitis, no bowel obstruction. <Dr. Britany Morales, DO - Last Filed: 01/17/23 01:15> [facility] Lab Data Labs: Laboratory Results - last 24 hr 01/16/23 01/16/23 15:53 17:48 WBC 11.1 H RBC 5.31 Hgb 15.0 Hct 46.2 MCV 87.0 MCH 28.2 MCHC 32.5 RDW Std Deviation 45.8 H RDW Coeff of Ivory 14.5 Plt Count 270 MPV 10.3 Immature Gran % (Auto) 0.400 Neut % (Auto) 69.8 Lymph % (Auto) 20.3 Sharkey % (Auto) 6.6 Eos % (Auto) 2.3 Baso % (Auto) 0.6 Absolute Neuts (auto) 7.8 H Absolute Lymphs (auto) 2.26 Nucleated RBC % 0 Sodium 135 L Potassium 4.2 Chloride 103 Carbon Dioxide 27.0 Anion Gap 5 BUN 22 H Creatinine 1.54 H Estim Creat Clear Calc 58.37 Est GFR (MDRD) Af Amer 60 Est GFR (MDRD) Non-Af 49 L BUN/Creatinine Ratio 14.3 Glucose 235 H Calcium 9.1 Total Bilirubin 0.60 AST 19 ALT 38 Alkaline Phosphatase 110 Total Protein 7.3 Albumin 3.3 Globulin 4.0 Albumin/Globulin Ratio 0.8 L Lipase 52 Urine Color Yellow Urine Clarity Clear Urine pH 6.5 Ur Specific [place] 1.015 Urine Protein 30 H Urine Glucose (UA) 100 H Urine Ketones 5 H Urine Occult Blood Negative Urine Nitrite Negative Urine Bilirubin 1 H Urine Urobilinogen 4 H Ur Leukocyte Esterase 25 H Urine RBC 0 SEEN Urine WBC 0 SEEN Ur Squamous Epith Cells 0 SEEN Urine Bacteria 0 SEEN Urine Mucus 1+ Radiography Diagnostic Testing: Clinical Impression(s) from Imaging Studies Abdomen/Pelvis CT 01/16/23 15:50 IMPRESSION: No acute findings in the abdomen or pelvis. Electronically Signed: Robert Riggs MD at 17:20 EDT , Treatment and Re-Evaluation :: Patient appears to be in mild distress secondary to right-sided flank pain. Patient presents emerged part with 2 days of right lower quadrant pain, right flank pain. Patient will receive a full abdominal work-up including a noncontrast CT scan of the abdomen pelvis. Differential diagnosis include diverticulitis, bowel obstruction, appendicitis, obstructing uropathy. Patient be given IV fluids, Toradol Zofran and morphine. On reassessment, the patient was feeling better. Patient's laboratory values show slight leukocytosis white blood count 11.1. Patient's chemistries show slight renal insufficiency with a creatinine 1.5, this is slightly elevated, patient is normally around 1.2-1.3. Patient was given 1 L of fluid. Glucose was slightly elevated 235. Patient's lipase was negative patient CT scan shows no acute findings in the abdomen or pelvis. No evidence of obstructive uropathy, no appendicitis, no bowel obstruction. I have personally performed a face to face assessment of the patient and have reviewed the NIRMAL Note. I performed a substantive portion of the visit including all aspects of the following. My miller findings include: History is patient is a 57-year-old male with history of diverticulitis as well as some chronic abdominal pain presenting with worsening right flank pain for the past 2 days. Patient does not feel comfortable. He states is worse with movement. No associated rash making shingles less likely. On arrival patient is mildly tachypneic and tachycardic. He is given IV fluids, Zofran and morphine for pain control. He is then given IV Toradol. Urinalysis is largely negative and not consistent with infection or hematuria. CT of the abdomen pelvis is largely negative and does not show signs of acute appendicitis, ureterolithiasis, kidney stones or any colitis. Suspect that his pain is more muscle skeletal in origin. It is possible he could have a some type of radicular pain given its radiation coming from his lower thoracic spine. Encouraged to follow-up outpatient with his primary care doctor but at this time he does not appear to be any acute surgical or medical emergency. He verbalized agreement understands plan. Discharged home in stable condition peer Other additions or changes: [None] Discharge Plan Triage Chief Complaint: Flank Pain ED Midlevel Provider: Kel Ag ED Provider: Britany Morales Dx/Rx/DC Orders Clinical Impression: Acute flank pain, Acute lumbar myofascial strain Instructions: Abdominal Pain, Understanding Lumbosacral Strain, ED Symptoms With Uncertain Cause Prescriptions: New oxycodone-acetaminophen [Percocet] 5-325 mg tablet 1 tab PO Q8H PRN (Reason: pain) 3 Days Qty: 10 0RF No Action aspirin [Adult Aspirin Regimen] 81 mg tablet,delayed release (DR/EC) 81 mg PO QDAY Qty: 90 3RF etodolac 500 mg tablet 500 mg PO BID Qty: 40 0RF cyclobenzaprine 10 mg tablet 10 mg PO TID PRN (Reason: muscle spasm) Qty: 30 0RF atorvastatin 40 MG tablet 40 mg PO QHS metformin 1,000 MG tablet 1,000 mg PO BID albuterol sulfate 1 INHALER inhaler 2 puff inhalation Q4H PRN PRN (Reason: Wheezing) Qty: 1 0RF lisinopril-hydrochlorothiazide 1 EACH tablet 1 tablet PO DAILY amitriptyline 25 mg Tablet 25 mg PO DAILY oxycodone-acetaminophen [oxycodone-acetaminophen] 1 TABLET tablet 1 tab PO Q6H PRN PRN (Reason: Pain) 3 Days Qty: 12 0RF cyclobenzaprine [cyclobenzaprine] 10 MG tablet 10 mg PO TID PRN (Reason: Muscle Spasm) Qty: 15 0RF isosorbide mononitrate 30 mg tablet extended release 24 hr 30 mg PO DAILY Qty: 90 3RF Primary Care Provider: Lalo Weiner Referrals: Lalo Weiner DO [Primary Care Provider] - Activity Restrictions/Additional Instructions: Please perform gentle stretching, ice and heat. Take pain medicine as needed. Disposition Disposition: Home, Self Care Discharge Date/Time: 01/16/23 18:28
[2023-01-16] MEDS: Ondansetron 4 MG/2 ML Vial IV (16:08)
[2023-01-16] MEDS: 0.9% Normal Saline 1,000 ML 1000 ML IV (16:08)
[2023-01-16] MEDS: Ketorolac 15 MG/ML Vial IV (16:08)
[2023-01-16] MEDS: Morphine 4 MG/ML Syringe IV (16:08)
[2023-01-16 16:18] LABS: Absolute Lymphocyte Count 2.26 X10^3/uL (0.83-4.51); Absolute Neutrophil Count 7.8 X10^3/uL (2.0-7.7); Basophil# 0.07 X10^3/uL; Basophil% 0.6 % (0-1); Eosinophil# 0.26 X10^3/uL; Eosinophils% 2.3 % (0-5); Hematocrit 46.2 % (40-54); Lymphocyte # 2.26 X10^3/ul (0.83-4.51); Lymphocyte % 20.3 % (19-41); Mean Corp Hgb Conc 32.5 g/dL (32-36); Mean Corpuscular Hgb 28.2 pg (27.0-32.0); Mean Platelet Vol. 10.3 fl (6.2-12.0); Monocyte# 0.74 X10^3/uL; Monocyte% 6.6 % (0-10); NRBC Flagged by Analyzer 0 % (0-5); Neutrophil # 7.76 X10^3/uL (2.7-7.7); Neutrophil % 69.8 % (47-70); Platelet Count 270 K/mm3 (150-450); RBC Distribution Width CV 14.5 % (11.6-14.6); RBC Distribution Width SD 45.8 fl (35.1-43.9); Red Blood Count 5.31 M/mm3 (4.6-6.2); White Blood Count 11.1 K/mm3 (4.4-11.0)
[2023-01-16 16:34] LABS: ALB/GLOB Ratio 0.8 RATIO (0.9-2.4); AST(SGOT) 19 U/L (15-37); Alanine Aminotransfer ALT/SGPT 38 U/L (16-61); Albumin, Serum 3.3 g/dL (3.2-5.0); Alkaline Phosphatase 110 U/L (45-117); Anion Gap 5 (5-15); BUN 22 mg/dL (7-18); BUN/Creat Ratio 14.3 RATIO (10-20); Calcium,Total 9.1 mg/dL (8.5-10.1); Chloride 103 mmol/L (98-107); Creatinine, Serum 1.54 mg/dL (0.70-1.30); EST Glomerular Filtration Rate 49 mL/min (>60); Est Glom Filt Rate - Afr Amer 60 mL/min (>60); Estimated Creatinine Clearance 58.37 ml/min; Glucose 235 mg/dL (74-106); Lipase 52 U/L (13-75); Potassium 4.2 mmol/L (3.5-5.1); Protein, Total 7.3 g/dL (6.4-8.2); Sodium Level 135 mmol/L (136-145)
[2023-01-16 17:56] LABS: Bacteria 0 SEEN /hpf (None Seen); Red Blood Cells-Urine 0 SEEN /hpf (0-5); Squamous Epithelial Cells - UA 0 SEEN /hpf (0-5); White Blood Cells 0 SEEN /hpf (0-5)
[2023-01-16 17:57] LABS: Color, Urine Yellow (Yellow); Glucose, Dipstick 100 mg/dl (Normal); Ketone-Dipstick 5 mg/dl (Negative); Leukocyte Esterase-Dipstick 25 /ul (Negative); Nitrite-Dipstick Negative (Negative); Occult Blood-Urine Negative /ul (Negative); Protein-Dipstick 30 mg/dl (Negative); Specific Gravity, Urine 1.015 (1.002-1.030); Urine Clarity Clear (Clear); Urine Urobilinogen 4 mg/dl (Normal); Urine pH 6.5 (5.0 - 8.0)
[2023-01-16 18:12] LABS: Urine Bilirubin Dipstick 1 mg/dL (Negative)
[2023-01-16 18:14] LABS: Mucous, Urine 1+ /hpf (<or=2+)
== END 2023-01-16 18:28 | disposition home or self-care (01) ==
PROVIDERS: Nurse Practitioner; Emergency Provider Emergency Medicine; PCP Student in an Organized Health Care Education/Training Program; Visit Provider Emergency Medicine
DX: R10.9 Unspecified abdominal pain (principal); J44.9 Chronic obstructive pulmonary disease, unspecified; E11.9 Type 2 diabetes mellitus without complications; S39.012A Strain of muscle, fascia and tendon of lower back, initial encounter; E66.9 Obesity, unspecified; E78.5 Hyperlipidemia, unspecified; F17.210 Nicotine dependence, cigarettes, uncomplicated; I25.10 Atherosclerotic heart disease of native coronary artery without angina pectoris; I10 Essential (primary) hypertension; Z79.899 Other long term (current) drug therapy; Z79.84 Long term (current) use of oral hypoglycemic drugs; Z79.82 Long term (current) use of aspirin
CPT/HCPCS: 74176; 80053; 81001; 83690; 85025; 96361; 96374; 96375; 99283; A4216; J2405

== ENCOUNTER 2023-11-14 11:29 | Emergency (ER) | payer MEDICARE, SELFPAY ==
[2023-11-14 11:30] VITALS: BP 117/78; PULSE 106; RESP 18; TEMP 36.6; O2SAT 98
[2023-11-14 12:08] VITALS: BMI 37.5
--- NOTE | 2023-11-14 12:09 | VDLE_ITS ---
Reason For Study: LLE PAin RIGHT LEFT CFV is compressible, spontaneous, phasic, GSV is normal. competent and demonstrates normal CFV is compressible, spontaneous, phasic, augmentation. competent, and demonstrates normal Procedure augmentation. This is a venous duplex using B-mode, color FV is compressible, spontaneous, phasic, flow and spectral Doppler. competent and demonstrates normal Exam performed portable in ED. augmentation. The exam was diagnostic. POP V is compressible, spontaneous, phasic, A preliminary report was called and/or faxed competent and demonstrates normal to ED RN Luisa. augmentation. T/P Trunk is compressible. PTV is compressible. LT PerV is compressible. VL/Venous Duplex US, Unilateral Interpretation Summary There is no evidence of left lower extremity deep vein thrombosis. Left great s aphenous vein appears patent and compressible segmentally. Normal flow patterns right common femoral vein Ordering Physician: Kel Ag Referring Physician: Lalo Weiner Performed By: Michele Jenkins RVT
--- NOTE | 2023-11-14 12:10 | EX.ED.DYSGE1 ---
HPI <LEV Freire - Last Filed: 11/14/23 12:57> History of Present Illness Chief Complaint: Lower Extremity Injury Narrative Narrative: Patient is a 58-year-old male with history of obesity, hyperlipidemia, diabetes, who smokes tobacco presenting to the emergency department with pain to the left thigh that now is in the left groin. Patient had a total knee replacement on the left knee on October 22, 2023. The surgery was done by Dr. Lee at [facility]. Patient states he has been doing well with physical therapy. He noticed roughly 1.5 hours ago, patient had a pain to his left inner thigh it then moved went to his left groin. Patient is concerned for blood clot. Patient denies any other injury. At rest, patient does not have any shortness of breath or chest pain. [facility] <LEV Freire - Last Filed: 11/14/23 12:57> [facility] Medical History (Updated 11/14/23 @ 12:57 by LEV Freire) Status post replacement of knee joint Atherosclerosis of coronary artery without angina pectoris Essential (primary) hypertension Pancolitis Diverticulitis Diabetes mellitus, type II Mild cognitive impairment Chronic back pain Tobacco use COPD (chronic obstructive pulmonary disease) Hyperlipidemia Morbid obesity Home Medications ?Medication ?Instructions ?Recorded ?Last Taken ?Type atorvastatin 40 mg tablet 40 mg PO QHS cholesterol 04/26/18 08/04/19 History metformin 1,000 mg tablet 1,000 mg PO BID 11/29/19 Unknown History albuterol sulfate 90 mcg/actuation 2 puff inhalation Q4H PRN PRN 01/26/20 Unknown Rx aerosol inhaler Wheezing ##1 lisinopril 20 1 tablet PO DAILY 08/20/20 Unknown History mg-hydrochlorothiazide 12.5 mg tablet amitriptyline 25 mg tablet 25 mg PO DAILY 05/27/21 Unknown History oxycodone-acetaminophen 5 mg-325 1 tab PO Q6H PRN PRN Pain 3 days 05/27/21 Unknown Rx mg tablet #12 TABLETS cyclobenzaprine 10 mg tablet 10 mg PO TID PRN muscle spasm #30 06/01/21 Unknown Rx tabs isosorbide mononitrate 30 mg 30 mg PO DAILY #90 tabs 04/07/23 Unknown Rx tablet,extended release 24 hr aspirin 81 mg tablet,delayed 81 mg PO BID 11/14/23 Unknown History release (Adult Aspirin Regimen) meloxicam 15 mg tablet 15 mg PO DAILY 11/14/23 Unknown History Allergy/AdvReac Type Severity Reaction Status Date / Time hydrocodone bitartrate (From AdvReac Nausea Verified 11/14/23 11:30 Vicodin) Family History Father Heart disease Hypertension Myocardial infarction, Onset Age: 50 CAD (coronary artery disease) CABG Mother Hypertension CVA (cerebral vascular accident) Grandfather Myocardial infarction, Onset Age: 50 CAD (coronary artery disease) CABG Surgical History History of left heart catheterization (08/16/19) History of eye surgery H/O foot surgery History of back surgery Social History Smoking Status: Current every day smoker tobacco type: cigarettes ROS <LEV Freire - Last Filed: 11/14/23 12:57> ROS ED ROS Narrative Constitutional: Negative for fever, chills, weight loss, weakness Eyes: Negative for vision loss, vision change, double vision ENT: Negative for any sore throat, ear pain, congestion Cardiovascular: Negative for any chest pain, tightness, palpitations Respiratory: Negative for any cough, sputum production, hemoptysis, dyspnea, dyspnea on exertion, orthopnea Gastrointestinal: Negative for any abdominal pain, nausea, vomiting, diarrhea, constipation, blood in stool, blood in vomit : Negative for any urinary frequency, dysuria, retention, blood in urine Muscle skeletal: Negative for any neck pain, back pain. Positive for left inner thigh pain, left groin pain Neurological: Negative for any headache, syncope, dizziness Skin: Negative for any rashes, itching, abrasions, lacerations Psychiatric: Negative for any depression, anxiety, stress, suicidal ideation, homicidal ideation Hematologic: Negative for any excessive bruising, easy bleeding EXAM <LEV Freire - Last Filed: 11/14/23 12:57> Physical Exam Narrative Exam Narrative: Vital signs reviewed. HEET: Head normocephalic atraumatic, TMs clear bilaterally. Posterior pharynx is clear, moist mucous membranes. Nares clear bilaterally. Neck: Supple with no lymphadenopathy or tenderness. No signs of meningismus. Cardiac: Regular rate and rhythm no murmurs gallops or rubs, equal peripheral pulses bilaterally. Respiratory: Lungs clear to auscultation bilaterally. No chest tenderness. Abdomen: Soft, nontender, nondistended. No abdominal bruit or pulsatile masses. No hepatosplenomegaly Extremities: Patient Neuro: Cranial nerves II through XII intact, no focal neurological deficits. Skin: Clean dry and intact with no rash, purpura, petechiae, vesicles or pustules. Backs/flank: No CVA tenderness, no midline spinal tenderness, no deformity. Psych: Normal mood and affect. No SI, HI or acute psychosis. Const Vital Signs: 11/14/23 11:30 Temperature 97.8 F Temperature Source Temporal Pulse Rate 106 H Respiratory Rate 18 Blood Pressure 117/78 Blood Pressure Mean 91 Pulse Ox 98 Oxygen Delivery Method Room Air <Dr. Britany Morales DO - Last Filed: 11/17/23 07:33> Physical Exam Const Vital Signs: 11/14/23 11:30 Temperature 97.8 F Temperature Source Temporal Pulse Rate 106 H Respiratory Rate 18 Blood Pressure 117/78 Blood Pressure Mean 91 Pulse Ox 98 Oxygen Delivery Method Room Air MDM <LEV Freire - Last Filed: 11/14/23 12:57> MDM Radiography Diagnostic Testing: Clinical Impression(s) from Imaging Studies Venous Doppler Study 11/14/23 12:09 Interpretation Summary There is no evidence of left lower extremity deep vein thrombosis. Left great saphenous vein appears patent and compressible segmentally. Normal flow patterns right common femoral vein Ordering Physician: Kel Ag Referring Physician: Lalo Weiner Performed By: Michele Jenkins RVT Treatment and Re-Evaluation :: Differential diagnosis includes however is not limited to: DVT, muscle strain, postop pain Patient appears to be in no obvious distress vital signs are stable, patient presents to the emergency department with pain to his left inner thigh, left groin. Patient denies any injury. Patient is concerned because he has postsurgery on October 22, 2023 for a total knee. Patient did receive a venous duplex of left lower extremity, this was negative. There is no evidence of any cellulitis, the knee looks well-appearing, incision site looks well. At this time, do the patient stable for discharge. Patient instructed to perform gentle stretching, he will continue the physical therapy. Instructed return for any worsening symptoms. Patient stable for discharge. <Dr. Britany Morales DO - Last Filed: 11/17/23 07:33> MDM Radiography Diagnostic Testing: Clinical Impression(s) from Imaging Studies Venous Doppler Study 11/14/23 12:09 Interpretation Summary There is no evidence of left lower extremity deep vein thrombosis. Left great saphenous vein appears patent and compressible segmentally. Normal flow patterns right common femoral vein Ordering Physician: Kel Ag Referring Physician: Lalo Weiner Performed By: Michele Jenkins RVT Treatment and Re-Evaluation :: Differential diagnosis includes however is not limited to: DVT, muscle strain, postop pain Patient appears to be in no obvious distress vital signs are stable, patient presents to the emergency department with pain to his left inner thigh, left groin. Patient denies any injury. Patient is concerned because he has postsurgery on October 22, 2023 for a total knee. Patient did receive a venous duplex of left lower extremity, this was negative. There is no evidence of any cellulitis, the knee looks well-appearing, incision site looks well. At this time, do the patient stable for discharge. Patient instructed to perform gentle stretching, he will continue the physical therapy. Instructed return for any worsening symptoms. Patient stable for discharge.\ I have personally performed a face to face assessment of the patient and have reviewed the NIRMAL Note. I performed a substantive portion of the visit including all aspects of the following. My miller findings include: History is patient is evaluated for atraumatic left thigh and groin pain. He had a recent left total knee replacement at [facility]. No respiratory symptoms. States he just wanted to get it checked out since the pain is moving. No signs of surgical site infection on physical exam. Venous duplex is obtained which is negative for DVT. He has good distal pulses and neurovascularly intact. Patient be discharged home with outpatient follow-up. He is agreeable this plan of care. Other additions or changes: [None] Discharge Plan Triage Chief Complaint: Lower Extremity Injury ED Midlevel Provider: Kel Ag ED Provider: Britany Morales Dx/Rx/DC Orders Clinical Impression: Acute pain of left lower extremity, Aftercare following knee joint replacement surgery Instructions: ED Pain, Acute, Uncertain Cause, ED Muscle Strain, Extremity Prescriptions: No Action cyclobenzaprine 10 mg tablet 10 mg PO TID PRN (Reason: muscle spasm) Qty: 30 0RF atorvastatin 40 MG tablet 40 mg PO QHS metformin 1,000 MG tablet 1,000 mg PO BID albuterol sulfate 1 INHALER inhaler 2 puff inhalation Q4H PRN PRN (Reason: Wheezing) Qty: 1 0RF lisinopril-hydrochlorothiazide 1 EACH tablet 1 tablet PO DAILY amitriptyline 25 mg Tablet 25 mg PO DAILY oxycodone-acetaminophen [oxycodone-acetaminophen] 1 TABLET tablet 1 tab PO Q6H PRN PRN (Reason: Pain) 3 Days Qty: 12 0RF meloxicam 15 mg tablet 15 mg PO DAILY aspirin [Adult Aspirin Regimen] 81 mg tablet,delayed release (DR/EC) 81 mg PO BID isosorbide mononitrate 30 mg tablet extended release 24 hr 30 mg PO DAILY Qty: 90 0RF Primary Care Provider: Lalo Weiner Referrals: Lalo Weiner DO [Primary Care Provider] - Activity Restrictions/Additional Instructions: Continue your physical therapy. Your venous duplex of the left lower extremity was negative. Your incision site looks well-appearing. Print Language: Malian Disposition Disposition: Home, Self Care Discharge Date/Time: 11/14/23 13:31
[2023-11-14 13:30] VITALS: BP 146/86; PULSE 76; RESP 16; TEMP 36.6; O2SAT 99
== END 2023-11-14 13:31 | disposition home or self-care (01) ==
PROVIDERS: Emergency Provider Emergency Medicine; PCP Student in an Organized Health Care Education/Training Program; Visit Provider Emergency Medicine
DX: Z47.1 Aftercare following joint replacement surgery (principal); J44.9 Chronic obstructive pulmonary disease, unspecified; E11.9 Type 2 diabetes mellitus without complications; M79.605 Pain in left leg; E78.5 Hyperlipidemia, unspecified; I10 Essential (primary) hypertension; E66.9 Obesity, unspecified; M54.9 Dorsalgia, unspecified; I25.10 Atherosclerotic heart disease of native coronary artery without angina pectoris; F17.210 Nicotine dependence, cigarettes, uncomplicated
CPT/HCPCS: 93971; 99282

== ENCOUNTER 2024-11-04 12:39 | Emergency (ER) | payer MEDICARE, SELFPAY ==
[2024-11-04 12:39] VITALS: BP 136/62; PULSE 95; RESP 16; TEMP 36.8; O2SAT 99; BMI 37.2
--- NOTE | 2024-11-04 13:11 | ED.VIS.LOWEX ---
HPI History of Present Illness HPI Narrative: Patient presents with a right knee pain that began yesterday. Patient states she was walking on a roof carrying some shingles when he felt a pop in his right knee. Patient did not fall off of the roof. Patient states that he was able to sit on the roof. Patient states his pain is worse with weightbearing. Patient describes his pain as throbbing. Patient admits to some tingling into his right leg. Patient denies any weakness. Chief Complaint: Lower Extremity Injury Informant: patient Occured/Mechanism Comment: [place] a pop while walking Onset/Context/Timing Onset: Yesterday Context: Sudden Onset Timing: Continuous Quality of Pain: Throbbing Location: Right knee Worsened by: Weightbearing Relieved by: Nothing Associated Symptoms Associated Symptoms: Positive for Parasthesia; Negative for Weakness or Loss of Funtion [facility] Medical History (Updated 11/04/24 @ 14:[address] Karthik Turk, DO) Status post replacement of knee joint Atherosclerosis of coronary artery without angina pectoris Essential (primary) hypertension Pancolitis Diverticulitis Diabetes mellitus, type II Mild cognitive impairment Chronic back pain Tobacco use COPD (chronic obstructive pulmonary disease) Hyperlipidemia Morbid obesity Home Medications ?Medication ?Instructions ?Recorded ?Last Taken ?Type metformin 1,000 mg tablet 1,000 mg PO BID 11/29/19 11/03/24 History albuterol sulfate 90 mcg/actuation 2 puff inhalation Q4H PRN PRN 01/26/20 Unknown Rx aerosol inhaler Wheezing ##1 lisinopril 20 1 tablet PO DAILY 08/20/20 11/03/24 History mg-hydrochlorothiazide 12.5 mg tablet amitriptyline 25 mg tablet 25 mg PO DAILY 05/27/21 11/03/24 History isosorbide mononitrate 30 mg 30 mg PO DAILY #90 tabs 04/07/23 11/03/24 Rx tablet,extended release 24 hr aspirin 81 mg tablet,delayed 81 mg PO DAILY 11/14/23 11/03/24 History release (Adult Aspirin Regimen) oxycodone-acetaminophen 5 mg-325 1 tab PO Q6H PRN PRN Pain 3 days 11/04/24 Unknown Rx mg tablet #12 TABLETS Allergy/AdvReac Type Severity Reaction Status Date / Time hydrocodone bitartrate (From AdvReac Nausea Verified 11/04/24 12:40 Vicodin) Family History Father Heart disease Hypertension Myocardial infarction, Onset Age: 50 CAD (coronary artery disease) CABG Mother Hypertension CVA (cerebral vascular accident) Grandfather Myocardial infarction, Onset Age: 50 CAD (coronary artery disease) CABG Surgical History (Updated 11/04/24 @ 14:[address] Karthik Turk DO) Hx of inguinal herniorrhaphy History of left heart catheterization (08/16/19) History of eye surgery H/O foot surgery History of back surgery Social History Smoking Status: Current every day smoker tobacco type: cigarettes ROS ROS ED Constitutional Constitutional ED: Denies chills or fever(s) Eyes Eyes: Denies blurry vision or change in vision ENT ENT ED: Denies rhinorrhea or sore throat Cardiovascular Cardiovascular: Denies chest pain or palpitations Respiratory/Chest Respiratory/Chest: Denies cough or dyspnea Gastrointestinal Gastrointestinal: Denies nausea or vomiting Genitourinary Genitourinary ED: Denies dysuria or hematuria Musculoskeletal Musculoskeletal: Reports back pain; Denies neck pain Integumentary Denies abscess or rash Neurologic Neurologic: Denies headache(s) or weakness Allergic/Immunologic Allergic/Immunologic ED: Denies mouth swelling or urticaria EXAM Physical Exam Const Vital Signs: 11/04/24 12:39 Temperature 98.3 F Temperature Source Oral Pulse Rate 95 Respiratory Rate 16 Blood Pressure 136/62 H Blood Pressure Mean 86 Pulse Ox 99 Oxygen Delivery Method Room Air Positive well nourished and well developed Constitutional Narrative: BMI is 37.2. General Appearance ED: well developed and NAD HEENT Reports moist mucous membranes Neck full ROM and supple Extremity Extremity Narrative: There is tenderness over the right knee. There is some mild edema. There is no ecchymosis. There is no joint effusion noted. There is pain with Smith's testing. There is no pain or laxity with varus and valgus stress testing. Range of motion was limited in all motions of the right knee secondary to pain. There is no erythema or warmth noted. Strength is 5/5 bilaterally lower extremities. There are no sensory deficits noted. Extensor mechanism is intact. Neuro oriented x3, CN's II-XII intact bilaterally, moves all extremities and no sensory deficits noted Sensorium / Orientation: alert Motor Exam: strength 5/5 throughout Psych mental status grossly normal MDM MDM MDM Narrative Medical decision making narrative: Differential diagnosis includes ligament sprain, meniscus tear, occult fracture, and loose body. X-rays of the right knee will be obtained to assess for degenerative arthritis, occult fracture, and loose body. Radiography Diagnostic Testing: X-rays of the right knee were obtained. There are 4 views. On my independent interpretation, there is no acute fracture. There is no loose body noted. There are some mild degenerative changes noted. Radiologist also interpreted the x-rays and agrees. Treatment and Re-Evaluation Narrative: Patient was given an injection of morphine here. Patient was advised of his findings. Patient was given a knee immobilizer. Patient was instructed to ice and elevate the right knee. Patient was instructed to follow-up with his primary care physician in 5 to 7 days. Patient was instructed to return if worse in any way. Patient understood and was agreeable with the plan. All questions were answered. Discharge Plan Triage Chief Complaint: Lower Extremity Injury ED Provider: Karthik Turk Dx/Rx/DC Orders Clinical Impression: Right knee sprain, Essential (primary) hypertension Instructions: ED Knee Sprain Prescriptions: New oxycodone-acetaminophen 5-325 mg tablet 1 tab PO Q6H PRN PRN (Reason: Pain) 3 Days Qty: 12 0RF No Action metformin 1,000 MG tablet 1,000 mg PO BID albuterol sulfate 1 INHALER inhaler 2 puff inhalation Q4H PRN PRN (Reason: Wheezing) Qty: 1 0RF lisinopril-hydrochlorothiazide 1 EACH tablet 1 tablet PO DAILY amitriptyline 25 mg Tablet 25 mg PO DAILY aspirin [Adult Aspirin Regimen] 81 mg tablet,delayed release (DR/EC) 81 mg PO DAILY isosorbide mononitrate 30 mg tablet extended release 24 hr 30 mg PO DAILY Qty: 90 0RF Primary Care Provider: Lalo Weiner Referrals: Lalo Weiner DO [Primary Care Provider] - 3-5 Days Print Language: Serbian Disposition Disposition: Home, Self Care
--- NOTE | 2024-11-04 13:20 | RAD_ITS ---
PROCEDURE: KNEE 4 OR MORE VIEWS 11/04/2024 REASON FOR EXAM: INJURY/PAIN TECHNIQUE: KNEE 4 OR MORE VIEWS COMPARISON: None FINDINGS: Bones: No fracture. No suspicious bone lesion. Joints: Normal alignment. Mild degenerative changes. Effusion: No effusion. Soft tissues: Soft tissues are unremarkable. Other: RAD/Knee 4 or More Views IMPRESSION: NO EFFUSION ACUTE FRACTURE OR DISLOCATION. Reading Location: [place] [id number]
[2024-11-04] MEDS: Morphine 4 MG/ML Syringe IM (13:27)
[2024-11-04 14:36] VITALS: BP 133/79; PULSE 78; RESP 18; TEMP 36.6; O2SAT 98
== END 2024-11-04 14:39 | disposition home or self-care (01) ==
PROVIDERS: Emergency Provider Emergency Medicine; PCP Student in an Organized Health Care Education/Training Program; Visit Provider Emergency Medicine
DX: S83.91XA Sprain of unspecified site of right knee, initial encounter (principal); J44.9 Chronic obstructive pulmonary disease, unspecified; E11.9 Type 2 diabetes mellitus without complications; I10 Essential (primary) hypertension; E78.5 Hyperlipidemia, unspecified; I25.10 Atherosclerotic heart disease of native coronary artery without angina pectoris; F17.210 Nicotine dependence, cigarettes, uncomplicated; X50.0XXA Overexertion from strenuous movement or load, initial encounter; Y92.89 Other specified places as the place of occurrence of the external cause
CPT/HCPCS: 73564; 96372; 99282